=== PATIENT | male | born 1955 | race Hispanic/Latino ===

== ENCOUNTER 2018-05-18 07:07 | Outpatient (CLI) | payer MEDICARE | END 2018-05-18 07:08 | disposition home or self-care (01) | LOC: RAD 07:07 ==

== ENCOUNTER 2018-05-18 16:25 | Inpatient (IN) | payer MEDICARE ==
--- NOTE | 2018-05-18 16:56 | ED PDOC ---
Arrival/HPI - General Chief Complaint: GI Problem Time Seen by Provider: 05/18/18 16:28 Historian: Patient - History of Present Illness Narrative History of Present Illness (Text): 05/18/18 17:43 62-year-old male with a history of diabetes presents today sent in by his primary care physician after an abnormal CAT scan of the chest and abdomen. Patient states he has been having weight loss and has been having difficulty with swallowing solids for the past month or so. Patient states over the past 2 days he developed diarrhea. Patient states prior to this he was having difficulty having bowel movements. Patient denies chest pain or shortness of breath. He denies fevers or chills. pt denies abdominal pain. He denies any urinary symptoms. Patient states he has been smoking cigarettes since he was in high school. Patient sister states he has a history of prior heavy alcohol use in the past. Per patient's sister a few years ago he was told he had nodules in the lungs and did not follow-up. Past Medical History - Provider Review Nursing Documentation Reviewed: Yes - Travel History Have you recently traveled outside [place] w/in the past 3 mons?: No - Infectious Disease Hx of Infectious Diseases: None - Pulmonary Hx Bronchitis: Yes (last week) - Neurological Hx Neurological Disorder: Yes (neuropathy both legs pins/needles) - HEENT Hx HEENT Disorder: Yes (eyeglasses) - Endocrine/Metabolic Hx Diabetes Mellitus Type 2: Yes - Musculoskeletal/Rheumatological Hx Falls: No - Psychiatric Hx Substance Use: No - Surgical History Other/Comment: bilat rotated cuff left 10 yrs ago right 3 yrs ago, hernioraphy as a child - Anesthesia Hx Anesthesia: Yes Hx Anesthesia Reactions: No Hx Malignant Hyperthermia: No Family/Social History - Physician Review Nursing Documentation Reviewed: Yes Family/Social History: Unknown Family HX Smoking Status: Heavy Smoker > 10 Cigarettes Daily Hx Alcohol Use: No Hx Substance Use: No Allergies/Home Meds Allergies/Adverse Reactions: Allergies No Known Allergies Allergy (Verified 07/30/15 11:51) Home Medications: Home Meds Medication Instructions Recorded Confirmed Glipizide [Glucotrol] 10 mg PO BID 07/30/15 05/18/18 Insulin Detemir [Levemir] 40 unit SC HS 07/30/15 05/18/18 Atorvastatin [Lipitor] 40 mg PO HS 05/18/18 05/18/18 Lisinopril [Zestril] 10 mg PO DAILY 05/18/18 05/18/18 Pantoprazole Sodium [Protonix] 40 mg PO DAILY 05/18/18 05/18/18 Review of Systems - Review of Systems Constitutional: Weight Change. absent: Fatigue, Fevers Respiratory: Cough. absent: SOB Cardiovascular: absent: Chest Pain, Palpitations Gastrointestinal: Abdominal Pain, Diarrhea, Nausea, Vomiting Genitourinary Male: absent: Dysuria, Frequency Musculoskeletal: absent: Arthralgias, Back Pain Skin: absent: Rash, Pruritis Neurological: absent: Headache, Dizziness Psychiatric: absent: Anxiety, Depression Physical Exam Vital Signs Reviewed: Yes Vital Signs Temp Pulse Resp BP Pulse Ox 05/18/18 16:25 97.7 F 94 H 18 164/81 H 100 Temperature: Afebrile Blood Pressure: Hypertensive Pulse: Regular Respiratory Rate: Normal Appearance: Positive for: Well-Appearing, Non-Toxic, Comfortable Pain Distress: None Mental Status: Positive for: Alert and Oriented X 3 - Systems Exam Head: Present: Atraumatic Mouth: Present: Moist Mucous Membranes Neck: Present: Normal Range of Motion Respiratory/Chest: Present: Clear to Auscultation, Good Air Exchange. No: Respiratory Distress, Accessory Muscle Use Cardiovascular: Present: Regular Rate and Rhythm, Normal S1, S2. No: Murmurs Abdomen: Present: Normal Bowel Sounds. No: Tenderness, Distention, Peritoneal Signs, Rebound, Guarding Back: Present: Normal Inspection Upper Extremity: Present: Normal Inspection Lower Extremity: Present: Normal Inspection Neurological: Present: GCS=15, Speech Normal Skin: Present: Warm, Dry, Normal Color. No: Rashes Psychiatric: Present: Alert, Oriented x 3 Medical Decision Making ED Course and Treatment: 05/18/18 18:02 62yr old male with abnormal CT showing intussusception and metastatic liver lesions as well as adenopathy. Case was discussed with Dr. Araujo in depth. As patient has a appointment with him on 06/08/2018. he reviewed CAT scan and saw the patient at beside. He advised CT of abd/pelvis with PO contrast to further evaluate. 05/18/18 18:[address] Salazar in depth. advised adding tumor marker and continue with CT and contact him after repeat CT. cbc; WBC: 18.9 hGb; 10.9 plt; elevated cmp: K5.9 glucose; 380 cxr: FINDINGS: LUNGS: The lungs are well inflated and clear. There is asymmetric enlargement of the right hilum however stable since the prior examination. PLEURA: No pleural effusions or pneumothorax. CARDIOVASCULAR: The heart is normal in size. There are aortic atherosclerotic calcifications present. OSSEOUS STRUCTURES: Within normal limits for the patient's age. [place] screw identified in the left humeral head. VISUALIZED UPPER ABDOMEN: Normal. OTHER FINDINGS: None. IMPRESSION: No active pulmonary disease. Stable asymmetric enlargement of the right hilum. 05/18/18 18:34 pt was found to have a K of 5.9 not hemolyzed. Insulin 7mg IV given, albuterol given, amp of bicarb given. pt glucose is 380. EKG: NSR at 94 b/m no st elevations, no peaked T waves. CT abd/pelvis with PO contrast:COMMENTS: The liver is enlarged. Innumerable masses seen scattered throughout the liver consistent with metastatic disease. There is no intra or extrahepatic biliary ductal dilatation. The spleen is normal. The gallbladder is contracted demonstrates vicarious excretion of contrast. There is no evidence of adrenal mass. There are multiple calcifications present in the region of pancreatic head consistent with chronic pancreatitis. Perihepatic ascites is seen. There is extensive retroperitoneal and mesenteric lymphadenopathy noted. There is moderate sized hiatal hernia. There is diffuse nodular thickening noted at the distal esophagus and GE junction. Malignancy is not excluded. Consider follow-up with upper endoscopy. The kidneys are normal in size, shape and configuration. There is no evidence of renal or ureteral mass. No renal or ureteral calculi are identified. There is no hydroureter or hydronephrosis. Note is again made of enteroenteric intussusception in the right upper quadrant. No evidence for appendicitis. No evidence for small or large bowel obstruction. Large amount of fecal material is seen throughout the colon consistent with constipation. There is no evidence of intrinsic or extrinsic bladder mass. There are no pleural effusions. Note again is made of numerous bilateral lung nodules, most of which measuring up to 5 mm consistent with metastatic process. There is a larger nodule noted in the left lower lobe measuring approximately 10 mm in size. There is subpleural nodular density measuring 14 mm in the left lung base. The bony structures are free of lytic or blastic lesions. IMPRESSION: 1. The liver is enlarged with innumerable masses seen scattered throughout the liver consistent with metastatic disease. 2. Chronic pancreatitis. 3. Enteroenteric intussusception in the right upper quadrant. 4. Perihepatic ascites. 5. Extensive retroperitoneal and mesenteric lymphadenopathy noted. 6. Moderate sized hiatal hernia. 7. Diffuse nodular thickening noted at the distal esophagus and GE junction. Malignancy is not excluded. Consider follow-up with upper endoscopy. 8. Numerous bilateral lung nodules measuring consistent with metastatic process. CT results of Abdominal and pelvis with PO contrast discussed with dr. Salazar in depth. advised him of the Intussusception that is again shown on this repeat ct. He wants to have the patient admitted. He does not want to do any surgical intervention at this time. Make patient NPO. And he will re-evaluate tomorrow morning. pt reassessment; pt again denies any pain; abdomen remains soft non tender, non distended. ct results of intussusception on 2nd CT were also discussed in depth with surgical coder dr. Chong. case discussed with dr Aleman in depth; will admit to remote tele for intussusception, hyperkalemia hyperglycemia All results were discussed in depth with the patient and family including metastatic cancer spread to the liver and intussusception. impression: intussusception, metastic liver lesions, hyperkalemia, hyperglycemia admit remote tele - RAD Interpretation Radiology Orders: 05/18/18 16:49 CHEST PORTABLE [RAD] Stat Disposition/Present on Arrival - Present on Arrival Any Indicators Present on Arrival: Yes History of DVT/PE: No History of Uncontrolled Diabetes: Yes Urinary Catheter: No History of Decub. Ulcer: No History Surgical Site Infection Following: None - Disposition Have Diagnosis and Disposition been Completed?: Yes Diagnosis: Metastases to the liver, Nausea vomiting and diarrhea, Abnormal CT of the abdomen, Lung nodules, Hyperglycemia, Hyperkalemia, Leukocytosis Disposition: HOSPITALIZED Disposition Time: 18:10 Patient Plan: Admission, Telemetry (remote) Patient Problems: Current Active Problems Problem Status Onset Abnormal CT of the abdomen Acute Hyperglycemia Acute Hyperkalemia Acute Leukocytosis Acute Lung nodules Acute Metastases to the liver Acute Nausea vomiting and diarrhea Acute Condition: FAIR Forms: [employer] ([place])
[2018-05-18] MEDS ORDERED: Iohexol 240 (50 ml) ONE (18:04)
[2018-05-18 18:13] LABS: BASO # 0.02 K/mm3 (0.0-2.0); BASO % 0.1 % (0.0-3.0); EOS % 0.1 % (1.5-5.0); GRAN # 15.75 (1.4-6.5); GRAN % 83.6 % (50.0-68.0); HEMOGLOBIN 10.9 g/dL (14.0-18.0); LYMPH # 1.1 (1.2-3.4); LYMPH % 5.9 % (22.0-35.0); MEAN CELL VOLUME 80.2 fl (80.0-105.0); MEAN CORPUSCULAR HEMOGLOBIN 26.3 pg (25.0-35.0); MEAN CORPUSCULAR HGB CONC 32.8 g/dl (31.0-37.0); MEAN PLATELET VOLUME 10.3 fl (7.0-11.0); MONO % 10.3 % (1.0-6.0); RBC 4.14 10^6/uL (3.5-6.1); WHITE BLOOD COUNT 18.9 10^3/uL (4.5-11.0)
[2018-05-18 18:19] LABS: INR 1.03; PROTHROMBIN TIME 11.7 SECONDS (9.4-12.5)
[2018-05-18 18:20] LABS: ALB/GLOB RATIO 0.8 (1.1-1.8); ALBUMIN 3.4 g/dL (3.0-4.8); ALT/SGPT 54 U/L (7-56); AST/SGOT 65 U/L (17-59); BLOOD UREA NITROGEN 33 mg/dL (7-21); CALCIUM 9.3 mg/dL (8.4-10.5); GFR NON-AFRICAN AMERICAN 51
[2018-05-18] MEDS ORDERED: Insulin Regular 1 UNITS/0.01 ML ML IV STA (18:31)
[2018-05-18] MEDS ORDERED: Sodium Chloride 0.9% 1,000 ML IV STA (18:31)
--- NOTE | 2018-05-18 18:31 | CP.PCM.CON ---
<Gil Chong - Last Filed: 05/18/18 22:22> History of Present Illness - History of Present Illness History of Present Illness: General Surgery Consult for Dr. Marie Fernandes Jenniffer is 62M with a PMH of DM, HTN, HLD & Anxiety who was sent by his primary care provider for chest/abdominal CT scan due to unexplained weight loss weight loss. The CT scan was significant for diffuse metastatic disease and an incidental finding suggestive of Intussusception in RUQ. Pt complains of constipation for 1 week which resolved yesterday upon taking Miralax with watery bowel movements. The patient complains of detention dysphagia to solids without odynophagia. Denies any bilious emesis, abdominal pain, bloody bowel movements. Additionally Pt denies fevers, chills, chest pain, dyspnea, hemoptysis, he matochezia, hematouria. PMHx: DM, HTN, HLD & Anxiety PSHx: Open right inguinal hernia repair. Rotator cuff repair. All: Denies Social: 80-pack year smoker. Denies alcohol & drugs. Family Hx: Father of heart attack. Mother of Lung CA / Breast CA Review of Systems - Constitutional Constitutional: Anorexia, Weight Loss. absent: Fever, Headache - EENT Eyes: absent: Blurred Vision, Change in Vision Ears: absent: Decreased Hearing, Ear Discharge, Tinnitus Nose/Mouth/Throat: absent: Nasal Discharge, Nose Pain, Odynophagia, Sore Throat - Cardiovascular Cardiovascular: absent: Chest Pain, Dyspnea, Dyspnea on Exertion, Palpitations, Syncope - Respiratory Respiratory: absent: Dyspnea, Hemoptysis, Dyspnea on Exertion - Gastrointestinal Gastrointestinal: Diarrhea, Dysphagia. absent: Abdominal Pain, Bloating, Naus ea, Odynophagia, Vomiting - Genitourinary Genitourinary: absent: Change in Urinary Stream, Difficulty Urinating, Dysuria - Musculoskeletal Musculoskeletal: absent: Arthralgias Past Patient History - Infectious Disease Hx of Infectious Diseases: None - Past Social History Smoking Status: Heavy Smoker > 10 Cigarettes Daily - PULMONARY Hx Bronchitis: Yes (last week) - NEUROLOGICAL Hx Neurological Disorder: Yes (neuropathy both legs pins/needles) - HEENT Hx HEENT Problems: Yes (eyeglasses) - ENDOCRINE/METABOLIC Hx Diabetes Mellitus Type 2: Yes - MUSCULOSKELETAL/RHEUMATOLOGICAL Hx Falls: No - PSYCHIATRIC Hx Substance Use: No - SURGICAL HISTORY Other/Comment: bilat rotated cuff left 10 yrs ago right 3 yrs ago, hernioraphy as a child - ANESTHESIA Hx Anesthesia: Yes Hx Anesthesia Reactions: No Hx Malignant Hyperthermia: No Meds Allergies/Adverse Reactions: Allergies Allergy/AdvReac Type Severity Reaction Status Date / Time No Known Allergies Allergy Verified 07/30/15 11:51 Physical Exam - Constitutional Appears: Non-toxic, No Acute Distress, Cachectic - Head Exam Head Exam: ATRAUMATIC, NORMOCEPHALIC - Eye Exam Eye Exam: EOMI, Normal appearance - ENT Exam ENT Exam: Mucous Membranes Moist - Respiratory Exam Respiratory Exam: NORMAL BREATHING PATTERN. absent: Respiratory Distress - Cardiovascular Exam Cardiovascular Exam: +S1, +S2 - GI/Abdominal Exam GI & Abdominal Exam: Soft. absent: Distended, Firm, Guarding, Hernia, Mass, Rebound, Rigid, Tenderness - Neurological Exam Neurological exam: Alert, Oriented x3 - Psychiatric Exam Psychiatric exam: Normal Affect, Normal Mood - Skin Skin Exam: Dry, Intact Results - Vital Signs Recent Vital Signs: Last Vital Signs Temp 97.7 F 05/18/18 16:25 Pulse 94 H 05/18/18 16:25 Resp 18 05/18/18 16:25 BP 164/81 H 05/18/18 16:25 Pulse Ox 100 05/18/18 16:25 - Labs Result Diagrams: 05/18/18 17:58 05/18/18 17:58 Labs: Laboratory Results - last 24 hr 05/18/18 17:45 BBK History Checked No verified bt - Imaging and Cardiology CT scan - abdomen Status: Image reviewed by me, Report reviewed by me CT scan - chest Status: Image reviewed by me Assessment & Plan - Assessment and Plan (Free Text) Assessment: 62M with diffuse metastatic disease admitted for incidental finding of intussusception of CT Scan Patient currently with benign abdomen, no emesis Stool in colon Tolerated PO contrast Will continue to monitor F/U Tumor markers Continue liquid diet at patient has dysphgia to solids Serial abdominal exams, if patient develops signs of acute obstruction or acute abdomen will proceed to OR D/W Dr. Marie Chong PGY3 <Danny Salazar - Last Filed: 05/19/18 08:15> Meds - Medications Medications: Current Medications Atorvastatin Calcium (Lipitor) 40 mg PO HS EMMA Heparin Sodium (Porcine) (Heparin) 5,000 units SC Q8H EMMA; Protocol Last Admin: 05/19/18 03:33 Dose: 5,000 units Sodium Chloride (Sodium Chloride 0.9%) 1,000 mls @ 100 mls/hr IV .Q10H EMMA Last Admin: 05/19/18 03:33 Dose: 100 mls/hr Insulin Human Regular (Humulin R Med) 0 units SC ACHS EMMA; Protocol Last Admin: 05/19/18 08:03 Dose: Not Given Pantoprazole Sodium (Protonix Inj) 40 mg IVP DAILY [facility] Results - Vital Signs Recent Vital Signs: Last Vital Signs Temp 97.6 F 05/19/18 01:40 Pulse 87 05/19/18 02:00 Resp 20 05/19/18 01:44 BP 164/75 H 05/19/18 01:40 Pulse Ox 97 05/19/18 01:40 - Labs Result Diagrams: 05/19/18 04:25 05/19/18 04:25 Labs: Laboratory Results - last 24 hr 05/18/18 05/18/18 05/18/18 17:45 17:58 17:58 WBC RBC Hgb Hct MCV MCH MCHC RDW Plt Count MPV Gran % Lymph % (Auto) Placer % (Auto) Eos % (Auto) Baso % (Auto) Gran # Lymph # (Auto) Placer # (Auto) Eos # (Auto) Baso # (Auto) PT 11.7 INR 1.03 APTT 33.0 pO2 VBG pH VBG pCO2 VBG HCO3 VBG Total CO2 VBG O2 Sat (Calc) VBG Base Excess VBG Potassium Glucose Lactate FiO2 Sodium 133 Potassium 5.9 H* D Chloride 100 Carbon Dioxide 27 Anion Gap 13 BUN 33 H Creatinine 1.4 Est GFR ( Amer) > 60 Est GFR (Non-Af Amer) 51 POC Glucose (mg/dL) Random Glucose 380 H* D Calcium 9.3 Phosphorus Magnesium Iron TIBC % Saturation Total Bilirubin 0.5 AST 65 H ALT 54 Alkaline Phosphatase 1377 H Lactate Dehydrogenase Total Creatine Kinase Troponin I Total Protein 7.8 Albumin 3.4 Globulin 4.4 Albumin/Globulin Ratio 0.8 L Lipase 73 Carcinoembryonic Ag Venous Blood Potassium Urine Color Urine Appearance Urine pH Ur Specific [place] Urine Protein Urine Glucose (UA) Urine Ketones Urine Blood Urine Nitrate Urine Bilirubin Urine Urobilinogen Ur Leukocyte Esterase Urine RBC Urine WBC Ur Epithelial Cells Urine Bacteria Blood Type O POSITIVE Blood Type Confirm Antibody Screen Negative BBK History Checked No verified bt 05/18/18 05/18/18 05/18/18 17:58 17:58 18:00 WBC 18.9 H RBC 4.14 Hgb 10.9 L Hct 33.2 L MCV 80.2 MCH 26.3 MCHC 32.8 RDW 14.0 Plt Count 716 H* D MPV 10.3 Gran % 83.6 H Lymph % (Auto) 5.9 L [place]acer % (Auto) 10.3 H Eos % (Auto) 0.1 L Baso % (Auto) 0.1 Gran # 15.75 H Lymph # (Auto) 1.1 L Placer # (Auto) 2.0 H Eos # (Auto) 0.0 Baso # (Auto) 0.02 PT INR APTT pO2 VBG pH VBG pCO2 VBG HCO3 VBG Total CO2 VBG O2 Sat (Calc) VBG Base Excess VBG Potassium Glucose Lactate FiO2 Sodium Potassium Chloride Carbon Dioxide Anion Gap BUN Creatinine Est GFR ( Amer) Est GFR (Non-Af Amer) POC Glucose (mg/dL) Random Glucose Calcium Phosphorus Magnesium Iron TIBC % Saturation Total Bilirubin AST ALT Alkaline Phosphatase Lactate Dehydrogenase 1657 H Total Creatine Kinase 114 Troponin I < 0.01 Total Protein Albumin Globulin Albumin/Globulin Ratio Lipase Carcinoembryonic Ag 72030.0 H Venous Blood Potassium Urine Color Urine Appearance Urine pH Ur Specific [place] Urine Protein Urine Glucose (UA) Urine Ketones Urine Blood Urine Nitrate Urine Bilirubin Urine Urobilinogen Ur Leukocyte Esterase Urine RBC Urine WBC Ur Epithelial Cells Urine Bacteria Blood Type Blood Type Confirm Antibody Screen BBK History Checked 05/18/18 05/18/18 05/18/18 18:24 18:37 19:00 WBC RBC Hgb Hct MCV MCH MCHC RDW Plt Count MPV Gran % Lymph % (Auto) Placer % (Auto) Eos % (Auto) Baso % (Auto) Gran # Lymph # (Auto) Placer # (Auto) Eos # (Auto) Baso # (Auto) PT INR APTT pO2 VBG pH VBG pCO2 VBG HCO3 VBG Total CO2 VBG O2 Sat (Calc) VBG Base Excess VBG Potassium Glucose Lactate FiO2 Sodium Potassium Chloride Carbon Dioxide Anion Gap BUN Creatinine Est GFR ( Amer) Est GFR (Non-Af Amer) POC Glucose (mg/dL) 366 H Random Glucose Calcium Phosphorus Magnesium Iron TIBC % Saturation Total Bilirubin AST ALT Alkaline Phosphatase Lactate Dehydrogenase Total Creatine Kinase Troponin I Total Protein Albumin Globulin Albumin/Globulin Ratio Lipase Carcinoembryonic Ag Venous Blood Potassium Urine Color Yellow Urine Appearance Clear Urine pH 6.0 Ur Specific [place] 1.025 Urine Protein >=300 H Urine Glucose (UA) 250 H Urine Ketones Negative Urine Blood Small H Urine Nitrate Negative Urine Bilirubin Negative Urine Urobilinogen 1.0 H Ur Leukocyte Esterase Negative Urine RBC 5 - 10 H Urine WBC 2 - 5 Ur Epithelial Cells 0 - 2 Urine Bacteria Mod Blood Type Blood Type Confirm O POSITIVE Antibody Screen BBK History Checked 05/18/18 05/18/18 05/18/18 19:21 20:25 21:50 WBC RBC Hgb Hct MCV MCH MCHC RDW Plt Count MPV Gran % Lymph % (Auto) Placer % (Auto) Eos % (Auto) Baso % (Auto) Gran # Lymph # (Auto) Placer # (Auto) Eos # (Auto) Baso # (Auto) PT INR APTT pO2 VBG pH VBG pCO2 VBG HCO3 VBG Total CO2 VBG O2 Sat (Calc) VBG Base Excess VBG Potassium Glucose Lactate FiO2 Sodium Potassium Chloride Carbon Dioxide Anion Gap BUN Creatinine Est GFR ( Amer) Est GFR (Non-Af Amer) POC Glucose (mg/dL) 309 H 292 H 256 H Random Glucose Calcium Phosphorus Magnesium Iron TIBC % Saturation Total Bilirubin AST ALT Alkaline Phosphatase Lactate Dehydrogenase Total Creatine Kinase Troponin I Total Protein Albumin Globulin Albumin/Globulin Ratio Lipase Carcinoembryonic Ag Venous Blood Potassium Urine Color Urine Appearance Urine pH Ur Specific [place] Urine Protein Urine Glucose (UA) Urine Ketones Urine Blood Urine Nitrate Urine Bilirubin Urine Urobilinogen Ur Leukocyte Esterase Urine RBC Urine WBC Ur Epithelial Cells Urine Bacteria Blood Type Blood Type Confirm Antibody Screen BBK History Checked 05/18/18 05/19/18 05/19/18 22:13 03:12 04:25 WBC RBC Hgb Hct MCV MCH MCHC RDW Plt Count MPV Gran % Lymph % (Auto) Placer % (Auto) Eos % (Auto) Baso % (Auto) Gran # Lymph # (Auto) Placer # (Auto) Eos # (Auto) Baso # (Auto) PT INR APTT pO2 115 H VBG pH 7.38 VBG pCO2 39.0 L VBG HCO3 23.1 VBG Total CO2 24.3 VBG O2 Sat (Calc) 98.6 H VBG Base Excess -1.8 L VBG Potassium 4.0 Glucose 266 H Lactate 1.1 FiO2 21.0 Sodium 131.0 L Potassium Chloride 101.0 Carbon Dioxide Anion Gap BUN Creatinine Est GFR ( Amer) Est GFR (Non-Af Amer) POC Glucose (mg/dL) 255 H Random Glucose Calcium Phosphorus Magnesium Iron 12 L TIBC 198 L % Saturation 6 L Total Bilirubin AST ALT Alkaline Phosphatase Lactate Dehydrogenase Total Creatine Kinase Troponin I Total Protein Albumin Globulin Albumin/Globulin Ratio Lipase Carcinoembryonic Ag Venous Blood Potassium 4.0 Urine Color Urine Appearance Urine pH Ur Specific [place] Urine Protein Urine Glucose (UA) Urine Ketones Urine Blood Urine Nitrate Urine Bilirubin Urine Urobilinogen Ur Leukocyte Esterase Urine RBC Urine WBC Ur Epithelial Cells Urine Bacteria Blood Type Blood Type Confirm Antibody Screen BBK History Checked 05/19/18 05/19/18 05/19/18 04:25 04:25 07:46 WBC 15.8 H RBC 3.56 Hgb 9.3 L Hct 28.1 L MCV 78.9 L MCH 26.1 MCHC 33.1 RDW 13.8 Plt Count 489 H MPV 9.9 Gran % 82.7 H Lymph % (Auto) 6.1 L Placer % (Auto) 11.0 H Eos % (Auto) 0.1 L Baso % (Auto) 0.1 Gran # 13.11 H Lymph # (Auto) 1.0 L Placer # (Auto) 1.7 H Eos # (Auto) 0.0 Baso # (Auto) 0.02 PT INR APTT pO2 VBG pH VBG pCO2 VBG HCO3 VBG Total CO2 VBG O2 Sat (Calc) VBG Base Excess VBG Potassium Glucose Lactate FiO2 Sodium 133 Potassium 4.4 Chloride 101 Carbon Dioxide 24 Anion Gap 12 BUN 29 H Creatinine 1.4 Est GFR ( Amer) > 60 Est GFR (Non-Af Amer) 51 POC Glucose (mg/dL) 97 Random Glucose 243 H Calcium 8.5 Phosphorus 3.8 Magnesium 1.9 Iron TIBC % Saturation Total Bilirubin 0.4 AST 46 ALT 44 Alkaline Phosphatase 986 H D Lactate Dehydrogenase Total Creatine Kinase Troponin I Total Protein 6.4 Albumin 2.8 L Globulin 3.5 Albumin/Globulin Ratio 0.8 L Lipase Carcinoembryonic Ag Venous Blood Potassium Urine Color Urine Appearance Urine pH Ur Specific [place] Urine Protein Urine Glucose (UA) Urine Ketones Urine Blood Urine Nitrate Urine Bilirubin Urine Urobilinogen Ur Leukocyte Esterase Urine RBC Urine WBC Ur Epithelial Cells Urine Bacteria Blood Type Blood Type Confirm Antibody Screen BBK History Checked Assessment & Plan - Assessment and Plan (Free Text) Plan: 62 yo w/ weight loss, inability to tolerate adequate po nutrition. w/u c/w metsastatic disease of unclear primary (retroperitoneal and hilar LNpathy, multiple liver and lung masses), and ?intussusception without evidence of bowel obstruction. Plan for CT or sono guided needle bx of liver lesions and CEA/CA19- 9. Med/Onc consult. No acute surgical issues at this point.
[2018-05-18] MEDS ORDERED: Albuterol 0.083% Inhal Sol (2.5 mg/3 mL) UD INH STA (18:33)
--- NOTE | 2018-05-18 18:39 | RAD ---
Date of service: 05/18/2018 HISTORY: cough/ n/v/d COMPARISON: 07/30/2015 FINDINGS: LUNGS: The lungs are well inflated and clear. There is asymmetric enlargement of the right hilum however stable since the prior examination. PLEURA: No pleural effusions or pneumothorax. CARDIOVASCULAR: The heart is normal in size. There are aortic atherosclerotic calcifications present. OSSEOUS STRUCTURES: Within normal limits for the patient's age. [place] screw identified in the left humeral head. VISUALIZED UPPER ABDOMEN: Normal. OTHER FINDINGS: None. IMPRESSION: No active pulmonary disease. Stable asymmetric enlargement of the right hilum.
[2018-05-18] MEDS ORDERED: Sodium Bicarbonate (8.4%) 50 Meq Syringe IVP ONE (18:40)
[2018-05-18 18:42] LABS: LIPASE 73 U/L (23-300)
--- NOTE | 2018-05-18 19:06 | CARD ---
APPROVED REPORT Date of service: 05/18/2018 EKG Measurement Heart [id number] <Conclusion> Normal sinus rhythm Normal ECG
[2018-05-18 19:16] LABS: URINE BILIRUBIN NEGATIVE (NEGATIVE); URINE BLOOD SMALL (NEGATIVE); URINE GLUCOSE (UA) 250 mg/dL (NEGATIVE); URINE LEUKOCYTE ESTERASE NEGATIVE Leu/uL (NEGATIVE); URINE PROTEIN >=300 mg/dL (<30 mg/dL)
[2018-05-18 19:17] LABS: URINE APPEARANCE CLEAR (CLEAR); URINE COLOR YELLOW (YELLOW)
[2018-05-18 20:29] LABS: URINE BACTERIA MOD /hpf; URINE EPITHELIAL CELLS 0 - 2 /hpf (0-5)
[2018-05-18] MEDS ORDERED: Piperacillin/Tazobact 3.375 gm 100 ML IVPB STA (21:18)
[2018-05-18 22:21] LABS: VENOUS BLOOD GAS BASE EXCESS -1.8 mmol/L (0.0-2.0); VENOUS BLOOD GAS PO2 115 mm/Hg (30-55); VENOUS BLOOD PH 7.38 (7.32-7.43)
--- NOTE | 2018-05-19 00:34 | CP.PCM.HP ---
<Claude Wheeler - Last Filed: 05/19/18 02:51> History of Present Illness - History of Present Illness History of Present Illness: Claude Wheeler DO PGY1 - Internal Medicine [employer] H&P CC: Dysphagia; Intusseption 62M w/ a PMH of DM, HLD, GERD, HTN, Chronic Pancreatitis, who presented to [facility] on 05/19 after seeing his primary who urged him to have CTAP performed. Patient reported he has been having constipation and weightloss over the past month; which has now turned into diarrhea (non bloody). Patient reported that he has lost close to 20lb over the past month and has been having chills/ night sweats during this time as well. He reports new onset dysphagia over the past 2- 3 weeks as well. Patient reports he has no issue initiating swallowing; however does report something stuck in his throat after he begins to swallow; patient reported symptoms initially started off as worsened w/ solids only however he now reports that he experiences some symptoms w/ liquids. Of note patient drank entire bowel contrast prep for CTAP today w/o any issue. Of note he reports his last colonoscopy was 8 years ago. Upon evaluation, he denies any N/V, denies abdominal pain, numbness/tingling, focal weakness, chest pain, palpitations, sob, cough. Remainder 12 system ROS is otherwise negative PMD: [place] [facility]: [facility] PMH: As above PSH: Hernia repair Social: Remote daily EtOH use, 50 pack year active smoker, Remote Hx Drug abuse Home Rx: Glipizide 10 BID Before Meals, Atorvastatin 40 QD, Insulin, Protonix 40 , Lisinopril 10 QD Fam hx: Mom - Breast CA, Lung CA, Father -CA Present on Admission - Present on Admission Any Indicators Present on Admission: No Review of Systems - Review of Systems All systems: reviewed and no additional remarkable complaints except Review of Systems: as per HPI Past Patient History - Infectious Disease Hx of Infectious Diseases: None - Past Social History Smoking Status: Heavy Smoker > 10 Cigarettes Daily - PULMONARY Hx Bronchitis: Yes (last week) - NEUROLOGICAL Hx Neurological Disorder: Yes (neuropathy both legs pins/needles) - HEENT Hx HEENT Problems: Yes (eyeglasses) - ENDOCRINE/METABOLIC Hx Diabetes Mellitus Type 2: Yes - MUSCULOSKELETAL/RHEUMATOLOGICAL Hx Falls: No - PSYCHIATRIC Hx Substance Use: No - SURGICAL HISTORY Other/Comment: bilat rotated cuff left 10 yrs ago right 3 yrs ago, hernioraphy as a child - ANESTHESIA Hx Anesthesia: Yes Hx Anesthesia Reactions: No Hx Malignant Hyperthermia: No Meds Allergies/Adverse Reactions: Allergies Allergy/AdvReac Type Severity Reaction Status Date / Time No Known Allergies Allergy Verified 07/30/15 11:51 Physical Exam - Constitutional Appears: Well, Non-toxic, No Acute Distress, Chronically Ill - Head Exam Head Exam: ATRAUMATIC, NORMOCEPHALIC - Eye Exam Eye Exam: EOMI, Normal appearance, PERRL. absent: Scleral icterus - ENT Exam ENT Exam: Mucous Membranes Moist Additional comments: poor dentition - Respiratory Exam Respiratory Exam: Clear to Auscultation Bilateral, NORMAL BREATHING PATTERN. absent: Rales, Rhonchi, Wheezes - Cardiovascular Exam Cardiovascular Exam: RRR, +S1, +S2. absent: Systolic Murmur - GI/Abdominal Exam GI & Abdominal Exam: Soft. absent: Tenderness Additional comments: Mild hepatomegaly; Liver edge palpable - Extremities Exam Extremities exam: Positive for: normal inspection, pedal pulses present - Neurological Exam Neurological exam: Alert, CN II-XII Intact, Oriented x3 - Skin Skin Exam: Dry, Intact, Warm Results - Vital Signs Recent Vital Signs: Last Vital Signs Temp 97.7 F 05/18/18 16:25 Pulse 90 05/18/18 21:51 Resp 18 05/18/18 21:51 BP 148/70 05/18/18 21:51 Pulse Ox 97 05/18/18 21:51 - Labs Result Diagrams: 05/18/18 17:58 05/18/18 17:58 Labs: Laboratory Results - last 24 hr 05/18/18 05/18/18 05/18/18 17:45 17:58 17:58 WBC RBC Hgb Hct MCV MCH MCHC RDW Plt Count MPV Gran % Lymph % (Auto) [place] % (Auto) Eos % (Auto) Baso % (Auto) Gran # Lymph # (Auto) [place] # (Auto) Eos # (Auto) Baso # (Auto) PT 11.7 INR 1.03 APTT 33.0 pO2 VBG pH VBG pCO2 VBG HCO3 VBG Total CO2 VBG O2 Sat (Calc) VBG Base Excess VBG Potassium Glucose Lactate FiO2 Sodium 133 Potassium 5.9 H* D Chloride 100 Carbon Dioxide 27 Anion Gap 13 BUN 33 H Creatinine 1.4 Est GFR ( Amer) > 60 Est GFR (Non-Af Amer) 51 POC Glucose (mg/dL) Random Glucose 380 H* D Calcium 9.3 Total Bilirubin 0.5 AST 65 H ALT 54 Alkaline Phosphatase 1377 H Total Protein 7.8 Albumin 3.4 Globulin 4.4 Albumin/Globulin Ratio 0.8 L Lipase 73 Carcinoembryonic Ag Venous Blood Potassium Urine Color Urine Appearance Urine pH Ur Specific [place] Urine Protein Urine Glucose (UA) Urine Ketones Urine Blood Urine Nitrate Urine Bilirubin Urine Urobilinogen Ur Leukocyte Esterase Urine RBC Urine WBC Ur Epithelial Cells Urine Bacteria Blood Type O POSITIVE Blood Type Confirm Antibody Screen Negative BBK History Checked No verified bt 05/18/18 05/18/18 05/18/18 17:58 18:00 18:24 WBC 18.9 H RBC 4.14 Hgb 10.9 L Hct 33.2 L MCV 80.2 MCH 26.3 MCHC 32.8 RDW 14.0 Plt Count 716 H* D MPV 10.3 Gran % 83.6 H Lymph % (Auto) 5.9 L [place] % (Auto) 10.3 H Eos % (Auto) 0.1 L Baso % (Auto) 0.1 Gran # 15.75 H Lymph # (Auto) 1.1 L [place] # (Auto) 2.0 H Eos # (Auto) 0.0 Baso # (Auto) 0.02 PT INR APTT pO2 VBG pH VBG pCO2 VBG HCO3 VBG Total CO2 VBG O2 Sat (Calc) VBG Base Excess VBG Potassium Glucose Lactate FiO2 Sodium Potassium Chloride Carbon Dioxide Anion Gap BUN Creatinine Est GFR ( Amer) Est GFR (Non-Af Amer) POC Glucose (mg/dL) Random Glucose Calcium Total Bilirubin AST ALT Alkaline Phosphatase Total Protein Albumin Globulin Albumin/Globulin Ratio Lipase Carcinoembryonic Ag 42714.0 H Venous Blood Potassium Urine Color Urine Appearance Urine pH Ur Specific [place] Urine Protein Urine Glucose (UA) Urine Ketones Urine Blood Urine Nitrate Urine Bilirubin Urine Urobilinogen Ur Leukocyte Esterase Urine RBC Urine WBC Ur Epithelial Cells Urine Bacteria Blood Type Blood Type Confirm O POSITIVE Antibody Screen BBK History Checked 05/18/18 05/18/18 05/18/18 18:37 19:00 19:21 WBC RBC Hgb Hct MCV MCH MCHC RDW Plt Count MPV Gran % Lymph % (Auto) [place] % (Auto) Eos % (Auto) Baso % (Auto) Gran # Lymph # (Auto) [place] # (Auto) Eos # (Auto) Baso # (Auto) PT INR APTT pO2 VBG pH VBG pCO2 VBG HCO3 VBG Total CO2 VBG O2 Sat (Calc) VBG Base Excess VBG Potassium Glucose Lactate FiO2 Sodium Potassium Chloride Carbon Dioxide Anion Gap BUN Creatinine Est GFR ( Amer) Est GFR (Non-Af Amer) POC Glucose (mg/dL) 366 H 309 H Random Glucose Calcium Total Bilirubin AST ALT Alkaline Phosphatase Total Protein Albumin Globulin Albumin/Globulin Ratio Lipase Carcinoembryonic Ag Venous Blood Potassium Urine Color Yellow Urine Appearance Clear Urine pH 6.0 Ur Specific [place] 1.025 Urine Protein >=300 H Urine Glucose (UA) 250 H Urine Ketones Negative Urine Blood Small H Urine Nitrate Negative Urine Bilirubin Negative Urine Urobilinogen 1.0 H Ur Leukocyte Esterase Negative Urine RBC 5 - 10 H Urine WBC 2 - 5 Ur Epithelial Cells 0 - 2 Urine Bacteria Mod Blood Type Blood Type Confirm Antibody Screen BBK History Checked 05/18/18 05/18/18 05/18/18 20:25 21:50 22:13 WBC RBC Hgb Hct MCV MCH MCHC RDW Plt Count MPV Gran % Lymph % (Auto) [place] % (Auto) Eos % (Auto) Baso % (Auto) Gran # Lymph # (Auto) [place] # (Auto) Eos # (Auto) Baso # (Auto) PT INR APTT pO2 115 H VBG pH 7.38 VBG pCO2 39.0 L VBG HCO3 23.1 VBG Total CO2 24.3 VBG O2 Sat (Calc) 98.6 H VBG Base Excess -1.8 L VBG Potassium 4.0 Glucose 266 H Lactate 1.1 FiO2 21.0 Sodium 131.0 L Potassium Chloride 101.0 Carbon Dioxide Anion Gap BUN Creatinine Est GFR ( Amer) Est GFR (Non-Af Amer) POC Glucose (mg/dL) 292 H 256 H Random Glucose Calcium Total Bilirubin AST ALT Alkaline Phosphatase Total Protein Albumin Globulin Albumin/Globulin Ratio Lipase Carcinoembryonic Ag Venous Blood Potassium 4.0 Urine Color Urine Appearance Urine pH Ur Specific [place] Urine Protein Urine Glucose (UA) Urine Ketones Urine Blood Urine Nitrate Urine Bilirubin Urine Urobilinogen Ur Leukocyte Esterase Urine RBC Urine WBC Ur Epithelial Cells Urine Bacteria Blood Type Blood Type Confirm Antibody Screen BBK History Checked Assessment & Plan - Assessment and Plan (Free Text) Assessment: 62M w/ a PMH of DM, HLD, GERD, HTN, Chronic Pancreatitis, who presented to [facility] on 05/19; Patient complained of dysphagia and B-type symptoms on evaluation; found to have significant heterogenicity on CTAP of liver highly suspicious for metastatic disease, and Intussusception Plan: Intussusception Noted on CTAP w/ PO contrast Tolerating PO Contrast/ liquids well; Abdomen Soft Nontender; Non acute; C/w liquid diet as per surgicla team Can proceed to OR if patient becomes acute; Will prep pre-op labs - PT/PTT/INR, CXR, EKG, Cross and Screen Surgery following, appreciate reccs GI Consulted, appreciate reccs HyperKalemia Asymptomatic, no chest pain, no peak T wave on admission EKG Given Bicarb and Insulin in ED Will give kayexalate once Follow up AM labs Metastatic Disease of Liver - Primary source unknown Patient has significant smoking history; continues to smoke actively; Reports approx 2 years ago hx of lung nodules w/o any follow up Patient presenting w/ BType symptoms, Chills, Night sweats, 20lb weight loss/ 1 mo, Primary source lung vs SCC of esophagus CEA elevated, CA 125, CA 19-9 pending Will give nicotine patch for now Liquid diet until dysphagia improves Heme/Onc consulted, appreciate reccs; Hx DM Low carb liquid diet Levemir 40 HS in EMR; patient did not report; will hold levemir at this time 10U levemir HS given - POC 250 on floors C/w ISS MED and Fingersticks ACHS [place] BUN/Cr : 33/1.4 Baseline 0.7-1.0 Most likely dehydration / pre-renal in setting of poor PO intake Will hydrate 100cc/hr Reevaluate in AM Anemia Normocytic; Most likely Anemia of chronic disease 2/2 suspected malignancy Fe/TIBC/B12/Folate/Ferritin pending Thrombocytosis Most likely reactive vs Dehydration PPX: Protonix Heparin 5K Q8 Patient was seen examined and discussed w/ attending physician Dr. Haris WHEELER DO PGY1 INTERNAL MEDICINE [employer]AGE [employer] - Date & Time Date: 05/19/18 Time: 04:21 <Shira Aleman - Last Filed: 05/19/18 05:58> Results - Vital Signs Recent Vital Signs: Last Vital Signs Temp 97.6 F 05/19/18 01:40 Pulse 87 05/19/18 02:00 Resp 20 05/19/18 01:44 BP 164/75 H 05/19/18 01:40 Pulse Ox 97 05/19/18 01:40 - Labs Result Diagrams: 05/19/18 04:25 05/19/18 04:25 Labs: Laboratory Results - last 24 hr 05/18/18 05/18/18 05/18/18 17:45 17:58 17:58 WBC RBC Hgb Hct MCV MCH MCHC RDW Plt Count MPV Gran % Lymph % (Auto) [place] % (Auto) Eos % (Auto) Baso % (Auto) Gran # Lymph # (Auto) [place] # (Auto) Eos # (Auto) Baso # (Auto) PT 11.7 INR 1.03 APTT 33.0 pO2 VBG pH VBG pCO2 VBG HCO3 VBG Total CO2 VBG O2 Sat (Calc) VBG Base Excess VBG Potassium Glucose Lactate FiO2 Sodium 133 Potassium 5.9 H* D Chloride 100 Carbon Dioxide 27 Anion Gap 13 BUN 33 H Creatinine 1.4 Est GFR ( Amer) > 60 Est GFR (Non-Af Amer) 51 POC Glucose (mg/dL) Random Glucose 380 H* D Calcium 9.3 Phosphorus Magnesium Total Bilirubin 0.5 AST 65 H ALT 54 Alkaline Phosphatase 1377 H Lactate Dehydrogenase Total Creatine Kinase Troponin I Total Protein 7.8 Albumin 3.4 Globulin 4.4 Albumin/Globulin Ratio 0.8 L Lipase 73 Carcinoembryonic Ag Venous Blood Potassium Urine Color Urine Appearance Urine pH Ur Specific [place] Urine Protein Urine Glucose (UA) Urine Ketones Urine Blood Urine Nitrate Urine Bilirubin Urine Urobilinogen Ur Leukocyte Esterase Urine RBC Urine WBC Ur Epithelial Cells Urine Bacteria Blood Type O POSITIVE Blood Type Confirm Antibody Screen Negative BBK History Checked No verified bt 05/18/18 05/18/18 05/18/18 17:58 17:58 18:00 WBC 18.9 H RBC 4.14 Hgb 10.9 L Hct 33.2 L MCV 80.2 MCH 26.3 MCHC 32.8 RDW 14.0 Plt Count 716 H* D MPV 10.3 Gran % 83.6 H Lymph % (Auto) 5.9 L [place] % (Auto) 10.3 H Eos % (Auto) 0.1 L Baso % (Auto) 0.1 Gran # 15.75 H Lymph # (Auto) 1.1 L [place] # (Auto) 2.0 H Eos # (Auto) 0.0 Baso # (Auto) 0.02 PT INR APTT pO2 VBG pH VBG pCO2 VBG HCO3 VBG Total CO2 VBG O2 Sat (Calc) VBG Base Excess VBG Potassium Glucose Lactate FiO2 Sodium Potassium Chloride Carbon Dioxide Anion Gap BUN Creatinine Est GFR ( Amer) Est GFR (Non-Af Amer) POC Glucose (mg/dL) Random Glucose Calcium Phosphorus Magnesium Total Bilirubin AST ALT Alkaline Phosphatase Lactate Dehydrogenase 1657 H Total Creatine Kinase 114 Troponin I < 0.01 Total Protein Albumin Globulin Albumin/Globulin Ratio Lipase Carcinoembryonic Ag 90642.0 H Venous Blood Potassium Urine Color Urine Appearance Urine pH Ur Specific [place] Urine Protein Urine Glucose (UA) Urine Ketones Urine Blood Urine Nitrate Urine Bilirubin Urine Urobilinogen Ur Leukocyte Esterase Urine RBC Urine WBC Ur Epithelial Cells Urine Bacteria Blood Type Blood Type Confirm Antibody Screen BBK History Checked 05/18/18 05/18/18 05/18/18 18:24 18:37 19:00 WBC RBC Hgb Hct MCV MCH MCHC RDW Plt Count MPV Gran % Lymph % (Auto) [place] % (Auto) Eos % (Auto) Baso % (Auto) Gran # Lymph # (Auto) [place] # (Auto) Eos # (Auto) Baso # (Auto) PT INR APTT pO2 VBG pH VBG pCO2 VBG HCO3 VBG Total CO2 VBG O2 Sat (Calc) VBG Base Excess VBG Potassium Glucose Lactate FiO2 Sodium Potassium Chloride Carbon Dioxide Anion Gap BUN Creatinine Est GFR ( Amer) Est GFR (Non-Af Amer) POC Glucose (mg/dL) 366 H Random Glucose Calcium Phosphorus Magnesium Total Bilirubin AST ALT Alkaline Phosphatase Lactate Dehydrogenase Total Creatine Kinase Troponin I Total Protein Albumin Globulin Albumin/Globulin Ratio Lipase Carcinoembryonic Ag Venous Blood Potassium Urine Color Yellow Urine Appearance Clear Urine pH 6.0 Ur Specific [place] 1.025 Urine Protein >=300 H Urine Glucose (UA) 250 H Urine Ketones Negative Urine Blood Small H Urine Nitrate Negative Urine Bilirubin Negative Urine Urobilinogen 1.0 H Ur Leukocyte Esterase Negative Urine RBC 5 - 10 H Urine WBC 2 - 5 Ur Epithelial Cells 0 - 2 Urine Bacteria Mod Blood Type Blood Type Confirm O POSITIVE Antibody Screen BBK History Checked 05/18/18 05/18/18 05/18/18 19:21 20:25 21:50 WBC RBC Hgb Hct MCV MCH MCHC RDW Plt Count MPV Gran % Lymph % (Auto) [place] % (Auto) Eos % (Auto) Baso % (Auto) Gran # Lymph # (Auto) [place] # (Auto) Eos # (Auto) Baso # (Auto) PT INR APTT pO2 VBG pH VBG pCO2 VBG HCO3 VBG Total CO2 VBG O2 Sat (Calc) VBG Base Excess VBG Potassium Glucose Lactate FiO2 Sodium Potassium Chloride Carbon Dioxide Anion Gap BUN Creatinine Est GFR ( Amer) Est GFR (Non-Af Amer) POC Glucose (mg/dL) 309 H 292 H 256 H Random Glucose Calcium Phosphorus Magnesium Total Bilirubin AST ALT Alkaline Phosphatase Lactate Dehydrogenase Total Creatine Kinase Troponin I Total Protein Albumin Globulin Albumin/Globulin Ratio Lipase Carcinoembryonic Ag Venous Blood Potassium Urine Color Urine Appearance Urine pH Ur Specific [place] Urine Protein Urine Glucose (UA) Urine Ketones Urine Blood Urine Nitrate Urine Bilirubin Urine Urobilinogen Ur Leukocyte Esterase Urine RBC Urine WBC Ur Epithelial Cells Urine Bacteria Blood Type Blood Type Confirm Antibody Screen BBK History Checked 05/18/18 05/19/18 05/19/18 22:13 03:12 04:25 WBC 15.8 H RBC 3.56 Hgb 9.3 L Hct 28.1 L MCV 78.9 L MCH 26.1 MCHC 33.1 RDW 13.8 Plt Count 489 H MPV 9.9 Gran % 82.7 H Lymph % (Auto) 6.1 L [place] % (Auto) 11.0 H Eos % (Auto) 0.1 L Baso % (Auto) 0.1 Gran # 13.11 H Lymph # (Auto) 1.0 L [place] # (Auto) 1.7 H Eos # (Auto) 0.0 Baso # (Auto) 0.02 PT INR APTT pO2 115 H VBG pH 7.38 VBG pCO2 39.0 L VBG HCO3 23.1 VBG Total CO2 24.3 VBG O2 Sat (Calc) 98.6 H VBG Base Excess -1.8 L VBG Potassium 4.0 Glucose 266 H Lactate 1.1 FiO2 21.0 Sodium 131.0 L Potassium Chloride 101.0 Carbon Dioxide Anion Gap BUN Creatinine Est GFR ( Amer) Est GFR (Non-Af Amer) POC Glucose (mg/dL) 255 H Random Glucose Calcium Phosphorus Magnesium Total Bilirubin AST ALT Alkaline Phosphatase Lactate Dehydrogenase Total Creatine Kinase Troponin I Total Protein Albumin Globulin Albumin/Globulin Ratio Lipase Carcinoembryonic Ag Venous Blood Potassium 4.0 Urine Color Urine Appearance Urine pH Ur Specific [place] Urine Protein Urine Glucose (UA) Urine Ketones Urine Blood Urine Nitrate Urine Bilirubin Urine Urobilinogen Ur Leukocyte Esterase Urine RBC Urine WBC Ur Epithelial Cells Urine Bacteria Blood Type Blood Type Confirm Antibody Screen BBK History Checked 05/19/18 04:25 WBC RBC Hgb Hct MCV MCH MCHC RDW Plt Count MPV Gran % Lymph % (Auto) [place] % (Auto) Eos % (Auto) Baso % (Auto) Gran # Lymph # (Auto) [place] # (Auto) Eos # (Auto) Baso # (Auto) PT INR APTT pO2 VBG pH VBG pCO2 VBG HCO3 VBG Total CO2 VBG O2 Sat (Calc) VBG Base Excess VBG Potassium Glucose Lactate FiO2 Sodium 133 Potassium 4.4 Chloride 101 Carbon Dioxide 24 Anion Gap 12 BUN 29 H Creatinine 1.4 Est GFR ( Amer) > 60 Est GFR (Non-Af Amer) 51 POC Glucose (mg/dL) Random Glucose 243 H Calcium 8.5 Phosphorus 3.8 Magnesium 1.9 Total Bilirubin 0.4 AST 46 ALT 44 Alkaline Phosphatase 986 H D Lactate Dehydrogenase Total Creatine Kinase Troponin I Total Protein 6.4 Albumin 2.8 L Globulin 3.5 Albumin/Globulin Ratio 0.8 L Lipase Carcinoembryonic Ag Venous Blood Potassium Urine Color Urine Appearance Urine pH Ur Specific [place] Urine Protein Urine Glucose (UA) Urine Ketones Urine Blood Urine Nitrate Urine Bilirubin Urine Urobilinogen Ur Leukocyte Esterase Urine RBC Urine WBC Ur Epithelial Cells Urine Bacteria Blood Type Blood Type Confirm Antibody Screen BBK History Checked Attending/Attestation - Attestation I have personally seen and examined this patient.: Yes I have fully participated in the care of the patient.: Yes I have reviewed all pertinent clinical information: Yes
[2018-05-19 01:00] LABS: TROPONIN I < 0.01 ng/mL
[2018-05-19 02:45] VITALS: BMI 18.8
[2018-05-19] MEDS ORDERED: Insulin Detemir 100 units/ml Vial (Levemir) SC ONE (03:16)
[2018-05-19] MEDS: Sodium Chloride 0.9% 1,000 ML IV SCH ×2 (03:33→16:49)
[2018-05-19] MEDS ORDERED: Sod Polystyrene Sulf 15 gm/60 ml Susp PO ONE (04:00)
[2018-05-19 04:40] LABS: BASO # 0.02 K/mm3 (0.0-2.0); BASO % 0.1 % (0.0-3.0); EOS % 0.1 % (1.5-5.0); GRAN # 13.11 (1.4-6.5); GRAN % 82.7 % (50.0-68.0); HEMOGLOBIN 9.3 g/dL (14.0-18.0); LYMPH % 6.1 % (22.0-35.0); MEAN CELL VOLUME 78.9 fl (80.0-105.0); MEAN CORPUSCULAR HEMOGLOBIN 26.1 pg (25.0-35.0); MEAN CORPUSCULAR HGB CONC 33.1 g/dl (31.0-37.0); MEAN PLATELET VOLUME 9.9 fl (7.0-11.0); MONO # 1.7 (0.1-0.6); PLATELET COUNT 489 10^3/uL (120.0-450.0); RBC 3.56 10^6/uL (3.5-6.1); RED CELL DISTRIBUTION WIDTH 13.8 % (11.5-14.5); WHITE BLOOD COUNT 15.8 10^3/uL (4.5-11.0)
[2018-05-19 05:18] LABS: ALB/GLOB RATIO 0.8 (1.1-1.8); ALBUMIN 2.8 g/dL (3.0-4.8); ALT/SGPT 44 U/L (7-56); AST/SGOT 46 U/L (17-59); BLOOD UREA NITROGEN 29 mg/dL (7-21); CALCIUM 8.5 mg/dL (8.4-10.5); GFR NON-AFRICAN AMERICAN 51
[2018-05-19 06:11] LABS: % IRON SATURATION 6 % (20-55); IRON 12 ug/dL (45-180); TOTAL IRON BINDING CAPACITY 198 ug/dL (261-462)
[2018-05-19] MEDS: Insulin Reg-MEDIUM-Coverage SC SCH ×4 (08:03→21:16)
--- NOTE | 2018-05-19 08:05 | CP.PCM.PN ---
Subjective - Date & Time of Evaluation Date of Evaluation: 05/19/18 Time of Evaluation: 07:02 - Subjective Subjective: PGY-1 Laure Peter D.O. Surgery progress note for Dr. Salazar: Patient was seen and examined this morning. He reports having some trouble swallowing solids but is tolerating clear liquids. Denies nausea and vomiting. His abdominal pain has improved. He has not had a BM since being hospitalized, but is passing gas. Objective - Vital Signs/Intake and Output Vital Signs (last 24 hours): Temp Pulse Resp BP Pulse Ox 97.6 F 87 20 164/75 H 97 05/19/18 01:40 05/19/18 02:00 05/19/18 01:44 05/19/18 01:40 05/19/18 01:40 Intake and Output: 05/19/18 05/19/18 06:59 18:59 Intake Total 60 Output Total 225 Balance -165 - Medications Medications: Current Medications Atorvastatin Calcium (Lipitor) 40 mg PO HS EMMA Heparin Sodium (Porcine) (Heparin) 5,000 units SC Q8H EMMA; Protocol Last Admin: 05/19/18 03:33 Dose: 5,000 units Sodium Chloride (Sodium Chloride 0.9%) 1,000 mls @ 100 mls/hr IV .Q10H EMMA Last Admin: 05/19/18 03:33 Dose: 100 mls/hr Insulin Human Regular (Humulin R Med) 0 units SC ACHS EMMA; Protocol Pantoprazole Sodium (Protonix Inj) 40 mg IVP DAILY EMMA - Labs Labs: 05/19/18 04:25 05/19/18 04:25 PT 11.7 SECONDS (9.4-12.5) 05/18/18 17:58 INR 1.03 05/18/18 17:58 APTT 33.0 Seconds (25.1-36.5) 05/18/18 17:58 - Constitutional Appears: Non-toxic, No Acute Distress, Older Than Stated Age - Head Exam Head Exam: ATRAUMATIC, NORMAL INSPECTION - Eye Exam Eye Exam: EOMI, Normal appearance - ENT Exam ENT Exam: Mucous Membranes Moist - Respiratory Exam Respiratory Exam: NORMAL BREATHING PATTERN. absent: Accessory Muscle Use, Respiratory Distress - Cardiovascular Exam Cardiovascular Exam: RRR - GI/Abdominal Exam GI & Abdominal Exam: Soft. absent: Distended, Tenderness, Mass, Rebound - Extremities Exam Extremities Exam: Normal Inspection - Neurological Exam Neurological Exam: Alert, Awake, Oriented x3 - Psychiatric Exam Psychiatric exam: Normal Affect, Normal Mood - Skin Skin Exam: Dry, Normal Color, Warm Assessment and Plan - Assessment and Plan (Free Text) Assessment: 62M with diffuse metastatic disease, unknown primary but diffuse nodular thickening noted at the distal esophagus and GE junction and lung nodules on CT, admitted for incidental finding of intussusception in RUQ on CT. - CEA 25,300 - LDH 1657 - Alk phos 1377 Plan: - Serial abdominal exams- if patient develops signs of acute obstruction/acute abdomen will proceed to OR - Clear liquids - CA 125, CA 19-9 pending - f/u Hem/onc and GI recs - Encourage smoking cessation Further recs as per attending, Dr. Salazar.
--- NOTE | 2018-05-19 08:18 | CT ---
Date of service: 05/18/2018 PROCEDURE: CT Abdomen and Pelvis with contrast HISTORY: abnormal CT COMPARISON: Chest CT without contrast 05/18/2018. TECHNIQUE: Helical CT of the abdomen and pelvis was performed following oral contrast administration only. Intravenous contrast was not administered as per referring physician request. Coronal and sagittal reformats were generated. Contrast dose: None Radiation dose: Total exam DLP = 308.23 mGy-cm. This CT exam was performed using one or more of the following dose reduction techniques: Automated exposure control, adjustment of the mA and/or kV according to patient size, and/or use of iterative reconstruction technique. FINDINGS: LOWER THORAX: Scattered pulmonary nodules are reiterated suspicious for metastasis including a left lower lobe 1.8 cm nodule abutting the left hemidiaphragm in image 26 series 3 as the largest of nodule identified at both lung bases. 0.3 irregular nodule is also identified the left lower lobe in image 7. LIVER: Heterogeneous density throughout the liver suggests metastatic disease once again. GALLBLADDER AND BILE DUCTS: Pericholecystic fluid is questioned surrounding the gallbladder probable limited vicarious excretion of iodinated contrast material in the lumen. PANCREAS: Chronic pancreatitis pattern reiterated. SPLEEN: Unremarkable. ADRENALS: Unremarkable. No mass. KIDNEYS AND URETERS: No hydronephrosis. Nonspecific questionable bilateral renal edema questioned which trace excreted iodinated contrast material identified. VASCULATURE: Nonaneurysmal abdominal aortic calcific atherosclerotic changes are identified. BOWEL: Prior right upper quadrant intussusception is likely only partially reduced with oral contrast traversing the segment. This is not an obstructing intussusception. A distinct mass is not clearly identified however this is the noncontrast CT and a mass may be present the lumen as the etiology of this intussusception. Clinically correlate further. Prominent retained fecal material scattered throughout large-bowel once again. All contrast opacifies the right hemicolon. APPENDIX: Not clearly identified. No definite pattern of appendicitis grossly. PERITONEUM: Anasarca related increased density of mesentery and extra abdominal fat is identified. Trace fluid is identified in the pelvis. No generalized ascites. LYMPH NODES: Gross retroperitoneal lymphadenopathy is appreciated approximating the peripancreatic/pericaval space once again. BLADDER: Urinary bladder is unremarkable, distended with excreted iodinated contrast material with smooth internal mural contour identified. No nodularity or suspicious filling defect. REPRODUCTIVE: Mildly enlarged prostate gland identified. BONES: No acute fracture. OTHER FINDINGS: Cachexia. IMPRESSION: 1. Partial reduction of intussusception likely. No bowel obstruction nevertheless oral contrast opacifying small and right-sided large-bowel segments. 2. Multifocal metastases identified in the lung bases and liver is well as retroperitoneum once again. Consider this is an etiology of the intussusception as well though no definitive small bowel masses clearly identifiable at this time. 3. Mild anasarca. Cachexia. 4. Other lesser findings as discussed above.
--- NOTE | 2018-05-19 11:31 | CP.PCM.CON ---
<Callum Wan - Last Filed: 05/19/18 12:14> History of Present Illness - History of Present Illness History of Present Illness: PGY-4 GI Fellow Consult Note 62 year old male with a PMx of DM, Tob Abuse, HLD, HTN, and anxiety sent in by his PCP for an abnormal CT abdomen/chest which showed multiple liver lesions consistent with metastatic disease in the liver and lung lesions (mets vs p rimary) and a small bowel intussusception in the RUQ. Patient reports 20 lb unintentional weight loss and solid-food dysphagia for about 1 month duration. Denies any dysphagia with liquids. He eats a soft diet at home. Patient complained of constipation for 1 week duration which has resolved with Miralax. Patient had numerous BMs yesterday, he described the BMs as diarrhea and/or soft. He also felt the stool was being retained in his anal area. Patient denies fevers, chills, vomiting, hemoptysis, blood or mucous in the stool. 12 point ROS negative other than stated above MHx: See above SurgHx: R open inguinal hernia repair as a child, Bilateral rotator cuff repair L 10 yrs. ago, R 3 yrs. ago. Meds: Reviewed in chart FamHx: Mother of Lung CA/Breast CA. Father of heart attack. Social: 80 pack year smoking history. Currently smokes 1/2 pack per day. Admits to quitting for 9 months in the past but was triggered by stress to start again. Denies current alcohol use. Admits to heavy drinking in the past which he quit 20 years ago. Denies illicit drug use. Patient is currently retired. He eats a soft diet. All: NKDA Endos EGD ~ 8 years ago, results unknown CSPY: Never done Past Patient History - Infectious Disease Hx of Infectious Diseases: None - Past Social History Smoking Status: Heavy Smoker > 10 Cigarettes Daily - CARDIAC Hx Hypertension: Yes - PULMONARY Hx Bronchitis: Yes (last week) - NEUROLOGICAL Hx Neurological Disorder: Yes (neuropathy both legs pins/needles) - HEENT Hx HEENT Problems: Yes (eyeglasses) - ENDOCRINE/METABOLIC Hx Diabetes Mellitus Type 2: Yes - MUSCULOSKELETAL/RHEUMATOLOGICAL Hx Falls: No - PSYCHIATRIC Hx Substance Use: No - SURGICAL HISTORY Other/Comment: bilat rotated cuff left 10 yrs ago right 3 yrs ago, hernioraphy as a child - ANESTHESIA Hx Anesthesia: Yes Hx Anesthesia Reactions: No Hx Malignant Hyperthermia: No Meds Allergies/Adverse Reactions: Allergies Allergy/AdvReac Type Severity Reaction Status Date / Time No Known Allergies Allergy Verified 07/30/15 11:51 - Medications Medications: Current Medications Atorvastatin Calcium (Lipitor) 40 mg PO HS EMMA Heparin Sodium (Porcine) (Heparin) 5,000 units SC Q8H [facility]; Protocol Last Admin: 05/19/18 09:07 Dose: 5,000 units Sodium Chloride (Sodium Chloride 0.9%) 1,000 mls @ 100 mls/hr IV .Q10H EMMA Last Admin: 05/19/18 03:33 Dose: 100 mls/hr Insulin Human Regular (Humulin R Med) 0 units SC ACHS [facility]; Protocol Last Admin: 05/19/18 08:03 Dose: Not Given Pantoprazole Sodium (Protonix Inj) 40 mg IVP DAILY [facility] Last Admin: 05/19/18 09:06 Dose: 40 mg Physical Exam - Constitutional Appears: No Acute Distress, Chronically Ill - Head Exam Head Exam: ATRAUMATIC, NORMAL INSPECTION - Eye Exam Eye Exam: EOMI. absent: Scleral icterus - ENT Exam ENT Exam: Mucous Membranes Dry. absent: Mucous Membranes Moist - Respiratory Exam Respiratory Exam: NORMAL BREATHING PATTERN. absent: Accessory Muscle Use, Respiratory Distress - Cardiovascular Exam Cardiovascular Exam: REGULAR RHYTHM, RRR - GI/Abdominal Exam GI & Abdominal Exam: Normal Bowel Sounds, Soft. absent: Bruit, Diminished Bowel Sounds, Distended, Firm, Guarding, Hernia, Mass, Organomegaly, Pulsatile Mass, Rebound, Rigid, Tenderness - Rectal Exam Rectal Exam: Deferred - Extremities Exam Extremities exam: Positive for: normal inspection. Negative for: pedal edema - Neurological Exam Neurological exam: Alert, CN II-XII Intact - Psychiatric Exam Psychiatric exam: Normal Affect, Normal Mood - Skin Skin Exam: Normal Color, Warm Results - Vital Signs Recent Vital Signs: Last Vital Signs Temp 98.3 F 05/19/18 08:24 Pulse 82 05/19/18 08:24 Resp 20 05/19/18 08:24 BP 137/72 05/19/18 08:24 Pulse Ox 97 05/19/18 08:24 - Labs Result Diagrams: 05/19/18 04:25 05/19/18 04:25 Labs: Laboratory Results - last 24 hr 05/18/18 05/18/18 05/18/18 17:45 17:58 17:58 WBC RBC Hgb Hct MCV MCH MCHC RDW Plt Count MPV Gran % Lymph % (Auto) [place] % (Auto) Eos % (Auto) Baso % (Auto) Gran # Lymph # (Auto) [place] # (Auto) Eos # (Auto) Baso # (Auto) PT 11.7 INR 1.03 APTT 33.0 pO2 VBG pH VBG pCO2 VBG HCO3 VBG Total CO2 VBG O2 Sat (Calc) VBG Base Excess VBG Potassium Glucose Lactate FiO2 Sodium 133 Potassium 5.9 H* D Chloride 100 Carbon Dioxide 27 Anion Gap 13 BUN 33 H Creatinine 1.4 Est GFR ( Amer) > 60 Est GFR (Non-Af Amer) 51 POC Glucose (mg/dL) Random Glucose 380 H* D Calcium 9.3 Phosphorus Magnesium Iron TIBC % Saturation Total Bilirubin 0.5 AST 65 H ALT 54 Alkaline Phosphatase 1377 H Lactate Dehydrogenase Total Creatine Kinase Troponin I Total Protein 7.8 Albumin 3.4 Globulin 4.4 Albumin/Globulin Ratio 0.8 L Lipase 73 Carcinoembryonic Ag Venous Blood Potassium Urine Color Urine Appearance Urine pH Ur Specific [place] Urine Protein Urine Glucose (UA) Urine Ketones Urine Blood Urine Nitrate Urine Bilirubin Urine Urobilinogen Ur Leukocyte Esterase Urine RBC Urine WBC Ur Epithelial Cells Urine Bacteria Blood Type O POSITIVE Blood Type Confirm Antibody Screen Negative BBK History Checked No verified bt 05/18/18 05/18/18 05/18/18 17:58 17:58 18:00 WBC 18.9 H RBC 4.14 Hgb 10.9 L Hct 33.2 L MCV 80.2 MCH 26.3 MCHC 32.8 RDW 14.0 Plt Count 716 H* D MPV 10.3 Gran % 83.6 H Lymph % (Auto) 5.9 L [place] % (Auto) 10.3 H Eos % (Auto) 0.1 L Baso % (Auto) 0.1 Gran # 15.75 H Lymph # (Auto) 1.1 L [place] # (Auto) 2.0 H Eos # (Auto) 0.0 Baso # (Auto) 0.02 PT INR APTT pO2 VBG pH VBG pCO2 VBG HCO3 VBG Total CO2 VBG O2 Sat (Calc) VBG Base Excess VBG Potassium Glucose Lactate FiO2 Sodium Potassium Chloride Carbon Dioxide Anion Gap BUN Creatinine Est GFR ( Amer) Est GFR (Non-Af Amer) POC Glucose (mg/dL) Random Glucose Calcium Phosphorus Magnesium Iron TIBC % Saturation Total Bilirubin AST ALT Alkaline Phosphatase Lactate Dehydrogenase 1657 H Total Creatine Kinase 114 Troponin I < 0.01 Total Protein Albumin Globulin Albumin/Globulin Ratio Lipase Carcinoembryonic Ag 31653.0 H Venous Blood Potassium Urine Color Urine Appearance Urine pH Ur Specific [place] Urine Protein Urine Glucose (UA) Urine Ketones Urine Blood Urine Nitrate Urine Bilirubin Urine Urobilinogen Ur Leukocyte Esterase Urine RBC Urine WBC Ur Epithelial Cells Urine Bacteria Blood Type Blood Type Confirm Antibody Screen BBK History Checked 05/18/18 05/18/18 05/18/18 18:24 18:37 19:00 WBC RBC Hgb Hct MCV MCH MCHC RDW Plt Count MPV Gran % Lymph % (Auto) [place] % (Auto) Eos % (Auto) Baso % (Auto) Gran # Lymph # (Auto) [place] # (Auto) Eos # (Auto) Baso # (Auto) PT INR APTT pO2 VBG pH VBG pCO2 VBG HCO3 VBG Total CO2 VBG O2 Sat (Calc) VBG Base Excess VBG Potassium Glucose Lactate FiO2 Sodium Potassium Chloride Carbon Dioxide Anion Gap BUN Creatinine Est GFR ( Amer) Est GFR (Non-Af Amer) POC Glucose (mg/dL) 366 H Random Glucose Calcium Phosphorus Magnesium Iron TIBC % Saturation Total Bilirubin AST ALT Alkaline Phosphatase Lactate Dehydrogenase Total Creatine Kinase Troponin I Total Protein Albumin Globulin Albumin/Globulin Ratio Lipase Carcinoembryonic Ag Venous Blood Potassium Urine Color Yellow Urine Appearance Clear Urine pH 6.0 Ur Specific [place] 1.025 Urine Protein >=300 H Urine Glucose (UA) 250 H Urine Ketones Negative Urine Blood Small H Urine Nitrate Negative Urine Bilirubin Negative Urine Urobilinogen 1.0 H Ur Leukocyte Esterase Negative Urine RBC 5 - 10 H Urine WBC 2 - 5 Ur Epithelial Cells 0 - 2 Urine Bacteria Mod Blood Type Blood Type Confirm O POSITIVE Antibody Screen BBK History Checked 05/18/18 05/18/18 05/18/18 19:21 20:25 21:50 WBC RBC Hgb Hct MCV MCH MCHC RDW Plt Count MPV Gran % Lymph % (Auto) [place] % (Auto) Eos % (Auto) Baso % (Auto) Gran # Lymph # (Auto) [place] # (Auto) Eos # (Auto) Baso # (Auto) PT INR APTT pO2 VBG pH VBG pCO2 VBG HCO3 VBG Total CO2 VBG O2 Sat (Calc) VBG Base Excess VBG Potassium Glucose Lactate FiO2 Sodium Potassium Chloride Carbon Dioxide Anion Gap BUN Creatinine Est GFR ( Amer) Est GFR (Non-Af Amer) POC Glucose (mg/dL) 309 H 292 H 256 H Random Glucose Calcium Phosphorus Magnesium Iron TIBC % Saturation Total Bilirubin AST ALT Alkaline Phosphatase Lactate Dehydrogenase Total Creatine Kinase Troponin I Total Protein Albumin Globulin Albumin/Globulin Ratio Lipase Carcinoembryonic Ag Venous Blood Potassium Urine Color Urine Appearance Urine pH Ur Specific [place] Urine Protein Urine Glucose (UA) Urine Ketones Urine Blood Urine Nitrate Urine Bilirubin Urine Urobilinogen Ur Leukocyte Esterase Urine RBC Urine WBC Ur Epithelial Cells Urine Bacteria Blood Type Blood Type Confirm Antibody Screen BBK History Checked 05/18/18 05/19/18 05/19/18 22:13 03:12 04:25 WBC RBC Hgb Hct MCV MCH MCHC RDW Plt Count MPV Gran % Lymph % (Auto) [place] % (Auto) Eos % (Auto) Baso % (Auto) Gran # Lymph # (Auto) [place] # (Auto) Eos # (Auto) Baso # (Auto) PT INR APTT pO2 115 H VBG pH 7.38 VBG pCO2 39.0 L VBG HCO3 23.1 VBG Total CO2 24.3 VBG O2 Sat (Calc) 98.6 H VBG Base Excess -1.8 L VBG Potassium 4.0 Glucose 266 H Lactate 1.1 FiO2 21.0 Sodium 131.0 L Potassium Chloride 101.0 Carbon Dioxide Anion Gap BUN Creatinine Est GFR ( Amer) Est GFR (Non-Af Amer) POC Glucose (mg/dL) 255 H Random Glucose Calcium Phosphorus Magnesium Iron 12 L TIBC 198 L % Saturation 6 L Total Bilirubin AST ALT Alkaline Phosphatase Lactate Dehydrogenase Total Creatine Kinase Troponin I Total Protein Albumin Globulin Albumin/Globulin Ratio Lipase Carcinoembryonic Ag Venous Blood Potassium 4.0 Urine Color Urine Appearance Urine pH Ur Specific [place] Urine Protein Urine Glucose (UA) Urine Ketones Urine Blood Urine Nitrate Urine Bilirubin Urine Urobilinogen Ur Leukocyte Esterase Urine RBC Urine WBC Ur Epithelial Cells Urine Bacteria Blood Type Blood Type Confirm Antibody Screen BBK History Checked 05/19/18 05/19/18 05/19/18 04:25 04:25 07:46 WBC 15.8 H RBC 3.56 Hgb 9.3 L Hct 28.1 L MCV 78.9 L MCH 26.1 MCHC 33.1 RDW 13.8 Plt Count 489 H MPV 9.9 Gran % 82.7 H Lymph % (Auto) 6.1 L [place] % (Auto) 11.0 H Eos % (Auto) 0.1 L Baso % (Auto) 0.1 Gran # 13.11 H Lymph # (Auto) 1.0 L [place] # (Auto) 1.7 H Eos # (Auto) 0.0 Baso # (Auto) 0.02 PT INR APTT pO2 VBG pH VBG pCO2 VBG HCO3 VBG Total CO2 VBG O2 Sat (Calc) VBG Base Excess VBG Potassium Glucose Lactate FiO2 Sodium 133 Potassium 4.4 Chloride 101 Carbon Dioxide 24 Anion Gap 12 BUN 29 H Creatinine 1.4 Est GFR ( Amer) > 60 Est GFR (Non-Af Amer) 51 POC Glucose (mg/dL) 97 Random Glucose 243 H Calcium 8.5 Phosphorus 3.8 Magnesium 1.9 Iron TIBC % Saturation Total Bilirubin 0.4 AST 46 ALT 44 Alkaline Phosphatase 986 H D Lactate Dehydrogenase Total Creatine Kinase Troponin I Total Protein 6.4 Albumin 2.8 L Globulin 3.5 Albumin/Globulin Ratio 0.8 L Lipase Carcinoembryonic Ag Venous Blood Potassium Urine Color Urine Appearance Urine pH Ur Specific [place] Urine Protein Urine Glucose (UA) Urine Ketones Urine Blood Urine Nitrate Urine Bilirubin Urine Urobilinogen Ur Leukocyte Esterase Urine RBC Urine WBC Ur Epithelial Cells Urine Bacteria Blood Type Blood Type Confirm Antibody Screen BBK History Checked Assessment & Plan - Assessment and Plan (Free Text) Assessment: 62 yo WM with h/o HTN, Tob Abuse, DM presenting with dysphagia, weight loss found to have intussusception, multiple liver and lung masses/nodules, esophageal thickening. # Dysphagia: Solid only. Given weight loss and CT findings of thickened esophagus, malignancy of utmost concern. Will need EGD for further evaluation. # Intussusception: Entero-entero in RUQ. Suspect related to underlying malignancy (likely met rather than primary). # Liver, Lung masses/nodules: Liver likely metastatic lesions (from esophageal, colon, less likely lung). Lung nodules/masses, pt had known history of lung nodules and never followed up with ongoing tob abuse suspicious for lung primary malignancy, but could be mets from rectal CA if present as never had CSPY and reports that stool sometimes hard to pass. Plan: - Plan for EGD on 05/20/18 - Miralax QID - NPO at [facility] - F/u Liver biopsy results - May need CSPY pending course - Gen Surg consulted Pt seen and examined with Dr. Araujo; please see attestation for further recs/changes. <Susan Katz - Last Filed: 05/19/18 14:50> Meds - Medications Medications: Current Medications Atorvastatin Calcium (Lipitor) 40 mg PO HS EMMA Heparin Sodium (Porcine) (Heparin) 5,000 units SC Q8H [facility]; Protocol Last Admin: 05/19/18 09:07 Dose: 5,000 units Sodium Chloride (Sodium Chloride 0.9%) 1,000 mls @ 100 mls/hr IV .Q10H [facility]MA Last Admin: 05/19/18 03:33 Dose: 100 mls/hr Insulin Human Regular (Humulin R Med) 0 units SC ACHS [facility]; Protocol Last Admin: 05/19/18 11:56 Dose: Not Given Pantoprazole Sodium (Protonix Inj) 40 mg IVP DAILY [facility] Last Admin: 05/19/18 09:06 Dose: 40 mg Polyethylene Glycol (Miralax) 17 gm PO QID [facility]MA Stop: 05/20/18 06:00 Last Admin: 05/19/18 14:24 Dose: Not Given Results - Vital Signs Recent Vital Signs: Last Vital Signs Temp 98.3 F 05/19/18 08:24 Pulse 89 05/19/18 10:00 Resp 20 05/19/18 08:24 BP 137/72 05/19/18 08:24 Pulse Ox 97 05/19/18 08:24 - Labs Result Diagrams: 05/19/18 04:25 05/19/18 04:25 Labs: Laboratory Results - last 24 hr 05/18/18 05/18/18 05/18/18 17:45 17:58 17:58 WBC RBC Hgb Hct MCV MCH MCHC RDW Plt Count MPV Gran % Lymph % (Auto) [place] % (Auto) Eos % (Auto) Baso % (Auto) Gran # Lymph # (Auto) [place] # (Auto) Eos # (Auto) Baso # (Auto) Differential Comment PT 11.7 INR 1.03 APTT 33.0 pO2 VBG pH VBG pCO2 VBG HCO3 VBG Total CO2 VBG O2 Sat (Calc) VBG Base Excess VBG Potassium Glucose Lactate FiO2 Sodium 133 Potassium 5.9 H* D Chloride 100 Carbon Dioxide 27 Anion Gap 13 BUN 33 H Creatinine 1.4 Est GFR ( Amer) > 60 Est GFR (Non-Af Amer) 51 POC Glucose (mg/dL) Random Glucose 380 H* D Calcium 9.3 Phosphorus Magnesium Iron TIBC % Saturation Total Bilirubin 0.5 AST 65 H ALT 54 Alkaline Phosphatase 1377 H Lactate Dehydrogenase Total Creatine Kinase Troponin I Total Protein 7.8 Albumin 3.4 Globulin 4.4 Albumin/Globulin Ratio 0.8 L Lipase 73 Carcinoembryonic Ag CA 19-9 Antigen CA 125 Antigen Venous Blood Potassium Urine Color Urine Appearance Urine pH Ur Specific [place] Urine Protein Urine Glucose (UA) Urine Ketones Urine Blood Urine Nitrate Urine Bilirubin Urine Urobilinogen Ur Leukocyte Esterase Urine RBC Urine WBC Ur Epithelial Cells Urine Bacteria Blood Type O POSITIVE Blood Type Confirm Antibody Screen Negative BBK History Checked No verified bt 05/18/18 05/18/18 05/18/18 17:58 17:58 18:00 WBC 18.9 H RBC 4.14 Hgb 10.9 L Hct 33.2 L MCV 80.2 MCH 26.3 MCHC 32.8 RDW 14.0 Plt Count 716 H* D MPV 10.3 Gran % 83.6 H Lymph % (Auto) 5.9 L [place] % (Auto) 10.3 H Eos % (Auto) 0.1 L Baso % (Auto) 0.1 Gran # 15.75 H Lymph # (Auto) 1.1 L [place] # (Auto) 2.0 H Eos # (Auto) 0.0 Baso # (Auto) 0.02 Differential Comment PT INR APTT pO2 VBG pH VBG pCO2 VBG HCO3 VBG Total CO2 VBG O2 Sat (Calc) VBG Base Excess VBG Potassium Glucose Lactate FiO2 Sodium Potassium Chloride Carbon Dioxide Anion Gap BUN Creatinine Est GFR ( Amer) Est GFR (Non-Af Amer) POC Glucose (mg/dL) Random Glucose Calcium Phosphorus Magnesium Iron TIBC % Saturation Total Bilirubin AST ALT Alkaline Phosphatase Lactate Dehydrogenase 1657 H Total Creatine Kinase 114 Troponin I < 0.01 Total Protein Albumin Globulin Albumin/Globulin Ratio Lipase Carcinoembryonic Ag CA 19-9 Antigen 864 H CA 125 Antigen 1220 H Venous Blood Potassium Urine Color Urine Appearance Urine pH Ur Specific [place] Urine Protein Urine Glucose (UA) Urine Ketones Urine Blood Urine Nitrate Urine Bilirubin Urine Urobilinogen Ur Leukocyte Esterase Urine RBC Urine WBC Ur Epithelial Cells Urine Bacteria Blood Type Blood Type Confirm Antibody Screen BBK History Checked 05/18/18 05/18/18 05/18/18 18:00 18:24 18:37 WBC RBC Hgb Hct MCV MCH MCHC RDW Plt Count MPV Gran % Lymph % (Auto) [place] % (Auto) Eos % (Auto) Baso % (Auto) Gran # Lymph # (Auto) [place] # (Auto) Eos # (Auto) Baso # (Auto) Differential Comment PT INR APTT pO2 VBG pH VBG pCO2 VBG HCO3 VBG Total CO2 VBG O2 Sat (Calc) VBG Base Excess VBG Potassium Glucose Lactate FiO2 Sodium Potassium Chloride Carbon Dioxide Anion Gap BUN Creatinine Est GFR ( Amer) Est GFR (Non-Af Amer) POC Glucose (mg/dL) 366 H Random Glucose Calcium Phosphorus Magnesium Iron TIBC % Saturation Total Bilirubin AST ALT Alkaline Phosphatase Lactate Dehydrogenase Total Creatine Kinase Troponin I Total Protein Albumin Globulin Albumin/Globulin Ratio Lipase Carcinoembryonic Ag 43417.0 H CA 19-9 Antigen CA 125 Antigen Venous Blood Potassium Urine Color Urine Appearance Urine pH Ur Specific [place] Urine Protein Urine Glucose (UA) Urine Ketones Urine Blood Urine Nitrate Urine Bilirubin Urine Urobilinogen Ur Leukocyte Esterase Urine RBC Urine WBC Ur Epithelial Cells Urine Bacteria Blood Type Blood Type Confirm O POSITIVE Antibody Screen BBK History Checked 05/18/18 05/18/18 05/18/18 19:00 19:21 20:25 WBC RBC Hgb Hct MCV MCH MCHC RDW Plt Count MPV Gran % Lymph % (Auto) [place] % (Auto) Eos % (Auto) Baso % (Auto) Gran # Lymph # (Auto) [place] # (Auto) Eos # (Auto) Baso # (Auto) Differential Comment PT INR APTT pO2 VBG pH VBG pCO2 VBG HCO3 VBG Total CO2 VBG O2 Sat (Calc) VBG Base Excess VBG Potassium Glucose Lactate FiO2 Sodium Potassium Chloride Carbon Dioxide Anion Gap BUN Creatinine Est GFR ( Amer) Est GFR (Non-Af Amer) POC Glucose (mg/dL) 309 H 292 H Random Glucose Calcium Phosphorus Magnesium Iron TIBC % Saturation Total Bilirubin AST ALT Alkaline Phosphatase Lactate Dehydrogenase Total Creatine Kinase Troponin I Total Protein Albumin Globulin Albumin/Globulin Ratio Lipase Carcinoembryonic Ag CA 19-9 Antigen CA 125 Antigen Venous Blood Potassium Urine Color Yellow Urine Appearance Clear Urine pH 6.0 Ur Specific [place] 1.025 Urine Protein >=300 H Urine Glucose (UA) 250 H Urine Ketones Negative Urine Blood Small H Urine Nitrate Negative Urine Bilirubin Negative Urine Urobilinogen 1.0 H Ur Leukocyte Esterase Negative Urine RBC 5 - 10 H Urine WBC 2 - 5 Ur Epithelial Cells 0 - 2 Urine Bacteria Mod Blood Type Blood Type Confirm Antibody Screen BBK History Checked 05/18/18 05/18/18 05/19/18 21:50 22:13 03:12 WBC RBC Hgb Hct MCV MCH MCHC RDW Plt Count MPV Gran % Lymph % (Auto) [place] % (Auto) Eos % (Auto) Baso % (Auto) Gran # Lymph # (Auto) [place] # (Auto) Eos # (Auto) Baso # (Auto) Differential Comment PT INR APTT pO2 115 H VBG pH 7.38 VBG pCO2 39.0 L VBG HCO3 23.1 VBG Total CO2 24.3 VBG O2 Sat (Calc) 98.6 H VBG Base Excess -1.8 L VBG Potassium 4.0 Glucose 266 H Lactate 1.1 FiO2 21.0 Sodium 131.0 L Potassium Chloride 101.0 Carbon Dioxide Anion Gap BUN Creatinine Est GFR ( Amer) Est GFR (Non-Af Amer) POC Glucose (mg/dL) 256 H 255 H Random Glucose Calcium Phosphorus Magnesium Iron TIBC % Saturation Total Bilirubin AST ALT Alkaline Phosphatase Lactate Dehydrogenase Total Creatine Kinase Troponin I Total Protein Albumin Globulin Albumin/Globulin Ratio Lipase Carcinoembryonic Ag CA 19-9 Antigen CA 125 Antigen Venous Blood Potassium 4.0 Urine Color Urine Appearance Urine pH Ur Specific [place] Urine Protein Urine Glucose (UA) Urine Ketones Urine Blood Urine Nitrate Urine Bilirubin Urine Urobilinogen Ur Leukocyte Esterase Urine RBC Urine WBC Ur Epithelial Cells Urine Bacteria Blood Type Blood Type Confirm Antibody Screen BBK History Checked 05/19/18 05/19/18 05/19/18 04:25 04:25 04:25 WBC 15.8 H RBC 3.56 Hgb 9.3 L Hct 28.1 L MCV 78.9 L MCH 26.1 MCHC 33.1 RDW 13.8 Plt Count 489 H MPV 9.9 Gran % 82.7 H Lymph % (Auto) 6.1 L [place] % (Auto) 11.0 H Eos % (Auto) 0.1 L Baso % (Auto) 0.1 Gran # 13.11 H Lymph # (Auto) 1.0 L [place] # (Auto) 1.7 H Eos # (Auto) 0.0 Baso # (Auto) 0.02 Differential Comment See pathology report PT INR APTT pO2 VBG pH VBG pCO2 VBG HCO3 VBG Total CO2 VBG O2 Sat (Calc) VBG Base Excess VBG Potassium Glucose Lactate FiO2 Sodium 133 Potassium 4.4 Chloride 101 Carbon Dioxide 24 Anion Gap 12 BUN 29 H Creatinine 1.4 Est GFR ( Amer) > 60 Est GFR (Non-Af Amer) 51 POC Glucose (mg/dL) Random Glucose 243 H Calcium 8.5 Phosphorus 3.8 Magnesium 1.9 Iron 12 L TIBC 198 L % Saturation 6 L Total Bilirubin 0.4 AST 46 ALT 44 Alkaline Phosphatase 986 H D Lactate Dehydrogenase Total Creatine Kinase Troponin I Total Protein 6.4 Albumin 2.8 L Globulin 3.5 Albumin/Globulin Ratio 0.8 L Lipase Carcinoembryonic Ag CA 19-9 Antigen CA 125 Antigen Venous Blood Potassium Urine Color Urine Appearance Urine pH Ur Specific [place] Urine Protein Urine Glucose (UA) Urine Ketones Urine Blood Urine Nitrate Urine Bilirubin Urine Urobilinogen Ur Leukocyte Esterase Urine RBC Urine WBC Ur Epithelial Cells Urine Bacteria Blood Type Blood Type Confirm Antibody Screen BBK History Checked 05/19/18 05/19/18 07:46 11:37 WBC RBC Hgb Hct MCV MCH MCHC RDW Plt Count MPV Gran % Lymph % (Auto) [place] % (Auto) Eos % (Auto) Baso % (Auto) Gran # Lymph # (Auto) [place] # (Auto) Eos # (Auto) Baso # (Auto) Differential Comment PT INR APTT pO2 VBG pH VBG pCO2 VBG HCO3 VBG Total CO2 VBG O2 Sat (Calc) VBG Base Excess VBG Potassium Glucose Lactate FiO2 Sodium Potassium Chloride Carbon Dioxide Anion Gap BUN Creatinine Est GFR ( Amer) Est GFR (Non-Af Amer) POC Glucose (mg/dL) 97 148 H Random Glucose Calcium Phosphorus Magnesium Iron TIBC % Saturation Total Bilirubin AST ALT Alkaline Phosphatase Lactate Dehydrogenase Total Creatine Kinase Troponin I Total Protein Albumin Globulin Albumin/Globulin Ratio Lipase Carcinoembryonic Ag CA 19-9 Antigen CA 125 Antigen Venous Blood Potassium Urine Color Urine Appearance Urine pH Ur Specific [place] Urine Protein Urine Glucose (UA) Urine Ketones Urine Blood Urine Nitrate Urine Bilirubin Urine Urobilinogen Ur Leukocyte Esterase Urine RBC Urine WBC Ur Epithelial Cells Urine Bacteria Blood Type Blood Type Confirm Antibody Screen BBK History Checked <Gayle,Kovil V - Last Filed: 05/19/18 21:16> Meds - Medications Medications: Current Medications Acetaminophen (Tylenol 325mg Tab) 650 mg PO Q6H PRN PRN Reason: Fever >100.4 F Last Admin: 05/19/18 16:48 Dose: 650 mg Atorvastatin Calcium (Lipitor) 40 mg PO HS EMMA Heparin Sodium (Porcine) (Heparin) 5,000 units SC Q8H [facility]; Protocol Last Admin: 05/19/18 17:26 Dose: 5,000 units Sodium Chloride (Sodium Chloride 0.9%) 1,000 mls @ 100 mls/hr IV .Q10H [facility] Last Admin: 05/19/18 16:49 Dose: 100 mls/hr Insulin Human Regular (Humulin R Med) 0 units SC ACHS [facility]; Protocol Last Admin: 05/19/18 16:16 Dose: Not Given Pantoprazole Sodium (Protonix Inj) 40 mg IVP DAILY [facility] Last Admin: 05/19/18 09:06 Dose: 40 mg Polyethylene Glycol (Miralax) 17 gm PO QID [facility]MA Stop: 05/20/18 06:00 Last Admin: 05/19/18 17:10 Dose: Not Given Results - Vital Signs Recent Vital Signs: Last Vital Signs Temp 98.8 F 05/19/18 17:48 Pulse 79 05/19/18 18:00 Resp 20 05/19/18 08:24 BP 137/72 05/19/18 08:24 Pulse Ox 97 05/19/18 08:24 - Labs Result Diagrams: 05/19/18 04:25 05/19/18 04:25 Labs: Laboratory Results - last 24 hr 05/18/18 05/18/18 05/18/18 17:58 18:00 18:00 WBC RBC Hgb Hct MCV MCH MCHC RDW Plt Count MPV Gran % Lymph % (Auto) [place] % (Auto) Eos % (Auto) Baso % (Auto) Gran # Lymph # (Auto) [place] # (Auto) Eos # (Auto) Baso # (Auto) Differential Comment pO2 VBG pH VBG pCO2 VBG HCO3 VBG Total CO2 VBG O2 Sat (Calc) VBG Base Excess VBG Potassium Sodium Chloride Glucose Lactate FiO2 Potassium Carbon Dioxide Anion Gap BUN Creatinine Est GFR ( Amer) Est GFR (Non-Af Amer) POC Glucose (mg/dL) Random Glucose Calcium Phosphorus Magnesium Iron TIBC % Saturation Ferritin Total Bilirubin AST ALT Alkaline Phosphatase Lactate Dehydrogenase 1657 H Total Creatine Kinase 114 Troponin I < 0.01 Total Protein Albumin Globulin Albumin/Globulin Ratio Carcinoembryonic Ag 82989.0 H CA 19-9 Antigen 864 H CA 125 Antigen 1220 H Vitamin B12 Folate Venous Blood Potassium 05/18/18 05/18/18 05/19/18 21:50 22:13 03:12 WBC RBC Hgb Hct MCV MCH MCHC RDW Plt Count MPV Gran % Lymph % (Auto) [place] % (Auto) Eos % (Auto) Baso % (Auto) Gran # Lymph # (Auto) [place] # (Auto) Eos # (Auto) Baso # (Auto) Differential Comment pO2 115 H VBG pH 7.38 VBG pCO2 39.0 L VBG HCO3 23.1 VBG Total CO2 24.3 VBG O2 Sat (Calc) 98.6 H VBG Base Excess -1.8 L VBG Potassium 4.0 Sodium 131.0 L Chloride 101.0 Glucose 266 H Lactate 1.1 FiO2 21.0 Potassium Carbon Dioxide Anion Gap BUN Creatinine Est GFR ( Amer) Est GFR (Non-Af Amer) POC Glucose (mg/dL) 256 H 255 H Random Glucose Calcium Phosphorus Magnesium Iron TIBC % Saturation Ferritin Total Bilirubin AST ALT Alkaline Phosphatase Lactate Dehydrogenase Total Creatine Kinase Troponin I Total Protein Albumin Globulin Albumin/Globulin Ratio Carcinoembryonic Ag CA 19-9 Antigen CA 125 Antigen Vitamin B12 Folate Venous Blood Potassium 4.0 05/19/18 05/19/18 05/19/18 04:25 04:25 04:25 WBC 15.8 H RBC 3.56 Hgb 9.3 L Hct 28.1 L MCV 78.9 L MCH 26.1 MCHC 33.1 RDW 13.8 Plt Count 489 H MPV 9.9 Gran % 82.7 H Lymph % (Auto) 6.1 L [place] % (Auto) 11.0 H Eos % (Auto) 0.1 L Baso % (Auto) 0.1 Gran # 13.11 H Lymph # (Auto) 1.0 L [place] # (Auto) 1.7 H Eos # (Auto) 0.0 Baso # (Auto) 0.02 Differential Comment See pathology report pO2 VBG pH VBG pCO2 VBG HCO3 VBG Total CO2 VBG O2 Sat (Calc) VBG Base Excess VBG Potassium Sodium 133 Chloride 101 Glucose Lactate FiO2 Potassium 4.4 Carbon Dioxide 24 Anion Gap 12 BUN 29 H Creatinine 1.4 Est GFR ( Amer) > 60 Est GFR (Non-Af Amer) 51 POC Glucose (mg/dL) Random Glucose 243 H Calcium 8.5 Phosphorus 3.8 Magnesium 1.9 Iron 12 L TIBC 198 L % Saturation 6 L Ferritin 140.0 Total Bilirubin 0.4 AST 46 ALT 44 Alkaline Phosphatase 986 H D Lactate Dehydrogenase Total Creatine Kinase Troponin I Total Protein 6.4 Albumin 2.8 L Globulin 3.5 Albumin/Globulin Ratio 0.8 L Carcinoembryonic Ag CA 19-9 Antigen CA 125 Antigen Vitamin B12 > 1000 H Folate 16.4 Venous Blood Potassium 05/19/18 05/19/18 05/19/18 07:46 11:37 16:12 WBC RBC Hgb Hct MCV MCH MCHC RDW Plt Count MPV Gran % Lymph % (Auto) [place] % (Auto) Eos % (Auto) Baso % (Auto) Gran # Lymph # (Auto) [place] # (Auto) Eos # (Auto) Baso # (Auto) Differential Comment pO2 VBG pH VBG pCO2 VBG HCO3 VBG Total CO2 VBG O2 Sat (Calc) VBG Base Excess VBG Potassium Sodium Chloride Glucose Lactate FiO2 Potassium Carbon Dioxide Anion Gap BUN Creatinine Est GFR ( Amer) Est GFR (Non-Af Amer) POC Glucose (mg/dL) 97 148 H 124 H Random Glucose Calcium Phosphorus Magnesium Iron TIBC % Saturation Ferritin Total Bilirubin AST ALT Alkaline Phosphatase Lactate Dehydrogenase Total Creatine Kinase Troponin I Total Protein Albumin Globulin Albumin/Globulin Ratio Carcinoembryonic Ag CA 19-9 Antigen CA 125 Antigen Vitamin B12 Folate Venous Blood Potassium Attending/Attestation - Attestation I have personally seen and examined this patient.: Yes I have fully participated in the care of the patient.: Yes I have reviewed all pertinent clinical information: Yes Notes (Text): This is an addendum to GI consult report dictated by the GI Fellow. The patient was seen and examined earlier. Medical records, lab studies, imagings were reviewed. Last 24 hours events reviewed. Agreed with the above treatment plan as outlined in GI Fellow 's notes with the addition of the following this 62-year-old patient admitted was admitted with the weight loss dysphagia change of bowel habits. He was found to have multiple liver lesions lung lesions and also thickening of the distal esophagus on CT. Patient was also found to hae ileoileal intussusceptive changes. By mouth contrast CAT scan showed a contrast in the colon. Patient has been moving his bowels There is large amount of stool present in the colon. would recommend 1 clear liquid diet explained to. 2.EGD in the a.m. to evaluate the distal esophageal thickening rule out malignancy 3 Dr Jaydon Cleaning has been consulted for possible liver biopsy 05/19/18 21:09
[2018-05-19] MEDS: POLYETHYLENE GLYCOL 3350 17 GM/Dose PACKET PO SCH ×3 (14:24→21:15)
[2018-05-19 20:18] LABS: FOLATE 16.4 ng/mL
[2018-05-19] MEDS ORDERED: Insulin Detemir 100 units/ml Vial (Levemir) SC SCH (22:00)
--- NOTE | 2018-05-20 00:14 | CON ---
DATE: 05/19/2018 This is Dom Abad's consult on the medical floor. For Dr. Watkins. CHIEF COMPLAINT: Weight loss. HISTORY OF PRESENT ILLNESS: The patient is a 62-year-old male admitted via the emergency room for evaluation of dysphagia with weight loss with the patient reporting constipation, 20-pound weight loss over the past month or so with 2 to 3 weeks of loss of appetite and difficulty swallowing. With this the patient is otherwise denying pain and has had testing done to include a CT scan of the chest, abdomen and pelvis yesterday with findings to include intussusception of the small bowel and extensive retroperitoneal adenopathy with multiple metastatic lesions in the liver with scattered small pulmonary nodules. For this, Dr. Watkins was asked to consult for oncological evaluation. The patient is otherwise at this time without complaint and in no acute distress and n.p.o. It should be noted that his tumor markers have been returned with a CA19-9 of 864, CEA of 25,300 and a CA125 of 1220. PAST MEDICAL HISTORY: Significant for diabetes mellitus, GERD, hypertension, chronic pancreatitis, status post hernia repair, neuropathy, community-acquired pneumonia in 2016, COPD, tobacco abuse, anxiety, and rotator cuff repair on the left. ALLERGIES: NO KNOWN ALLERGIES. MEDICATIONS: Include glipizide, atorvastatin, insulin, Protonix, and lisinopril. FAMILY HISTORY AND SOCIAL HISTORY: An 80-pack year smoking history, currently smokes half a pack a day, trying to quit. Denies current use, admit to heavy drinking in the past. Quit approximately 20 years prior. Mother of lung cancer and history of breast cancer. Father of myocardial infarction. The patient reports he is retired now, was a worker at [employer] on the [facility] in [place], [place]. REVIEW OF SYSTEMS: Twelve-point review of systems was done, which is negative to questioning except for items mentioned in the history of present illness.. PHYSICAL EXAMINATION VITAL SIGNS: VITAL SIGNS: Temperature 98.8, pulse 79, respirations 20, blood pressure 132/72 with a pulse ox of 97%. HEENT: Unremarkable. NECK: Supple. HEART: Regular rate. LUNGS: Clear. ABDOMEN: Soft, nontender. EXTREMITIES: No edema. SKIN: Warm and dry. NEUROLOGIC: Awake, alert, and oriented x3. LABORATORY DATA: The patient's labs were done. White blood cell count of 15.8, hemoglobin 9.3, hematocrit of 28.1, platelet count of 489,000, down from 716,000 yesterday. His metabolic panel is within normal limits today. On admission, he had a potassium of 5.9 with a nonfasting glucose of 380 with LDH of 1657, alk phos of 1377, AST of 65. CEA value 25,300. CA19-9 of 864. CA125 of 1220. His blood sugars have been monitored with most recent sugar noted to be 124, vitamin B12 greater than 1000, folate 16.4. His liver function test returning to normal. Iron percent saturation is 6%. INR is 1.03. Urine showed greater than 300 mg/dL of protein, 250 mg of glucose, small amount of blood. The patient had a CT scan of the abdomen and pelvis. The impression was partial reduction of intussusception likely no bowel obstruction, oral contrast opacifying small and right-sided large bowel segments, multifocal metastasis identified at the lung bases and liver as well as retroperitoneum once again consider this is an etiology of intussusception as well. Though, no definite small bowel mass is clearly identified at this time. Mild anasarca, cachexia. The patient had a slide review smear peripheral blood showing microcytic hyperchromic despite poikilocytosis, no schistocytes, platelets increased to of the platelets. No mature cells identified on peripheral smear. EKG done yesterday was read as normal sinus rhythm, normal EKG. Chest x-ray was done yesterday was read as no active pulmonary disease, stable asymmetric enlargement of the right hilum. ASSESSMENT: The assessment on this patient is that of failure to thrive, unexplained weight loss, with multiple liver lung metastasis? intussusception, rule out malignancy, tobacco abuse, history of ethanol abuse, constipation, dysphagia, diabetes mellitus, hyperlipidemia, hypertension, and thrombocythemia. PLAN: Plan for this patient is to obtain a tissue diagnosis possible by liver biopsy with continuation of present medical regimen including surgical consult, gastrointestinal consult. The prognosis for this patient is guarded. Further workup as per results of testing. This is a complex patient with comprehensive medically necessary appropriate visit carried out in excess of 70 with patient's questions answered to his satisfaction. Ezequiel Singh MD
[2018-05-20 06:46] LABS: BASO # 0.01 K/mm3 (0.0-2.0); BASO % 0.1 % (0.0-3.0); EOS % 0.2 % (1.5-5.0); GRAN # 11.64 (1.4-6.5); GRAN % 82.7 % (50.0-68.0); HEMOGLOBIN 9.3 g/dL (14.0-18.0); LYMPH # 0.9 (1.2-3.4); LYMPH % 6.3 % (22.0-35.0); MEAN CELL VOLUME 79.6 fl (80.0-105.0); MEAN CORPUSCULAR HEMOGLOBIN 25.3 pg (25.0-35.0); MEAN CORPUSCULAR HGB CONC 31.8 g/dl (31.0-37.0); MEAN PLATELET VOLUME 10.5 fl (7.0-11.0); MONO # 1.5 (0.1-0.6); MONO % 10.7 % (1.0-6.0); RBC 3.67 10^6/uL (3.5-6.1); WHITE BLOOD COUNT 14.1 10^3/uL (4.5-11.0)
[2018-05-20 07:04] LABS: ALB/GLOB RATIO 0.8 (1.1-1.8); ALBUMIN 2.6 g/dL (3.0-4.8); ALT/SGPT 40 U/L (7-56); AST/SGOT 54 U/L (17-59); BLOOD UREA NITROGEN 24 mg/dL (7-21); CALCIUM 8.4 mg/dL (8.4-10.5); GFR NON-AFRICAN AMERICAN 51
--- NOTE | 2018-05-20 07:45 | CP.PCM.PN ---
Subjective - Date & Time of Evaluation Date of Evaluation: 05/20/18 Time of Evaluation: 06:40 - Subjective Subjective: PGY-1 Laure Peter D.O. Surgery progress note for Dr. Salazar: Patient was seen and examined this morning. He states his abdominal pain has resolved. He denies nausea and vomiting. He is urinating and having regular BMs. He is NPO for EGD today. Objective - Vital Signs/Intake and Output Vital Signs (last 24 hours): Temp Pulse Resp BP Pulse Ox 98.2 F 80 20 151/81 H 96 05/20/18 06:00 05/20/18 06:00 05/20/18 06:00 05/20/18 06:00 05/20/18 06:00 Intake and Output: 05/20/18 05/20/18 06:59 18:59 Intake Total 1200 Balance 1200 - Medications Medications: Current Medications Acetaminophen (Tylenol 325mg Tab) 650 mg PO Q6H PRN PRN Reason: Fever >100.4 F Last Admin: 05/19/18 16:48 Dose: 650 mg Atorvastatin Calcium (Lipitor) 40 mg PO HS EMMA Last Admin: 05/19/18 21:16 Dose: 40 mg Heparin Sodium (Porcine) (Heparin) 5,000 units SC Q8H EMMA; Protocol Last Admin: 05/19/18 17:26 Dose: 5,000 units Sodium Chloride (Sodium Chloride 0.9%) 1,000 mls @ 100 mls/hr IV .Q10H EMMA Last Admin: 05/19/18 16:49 Dose: 100 mls/hr Insulin Human Regular (Humulin R Med) 0 units SC ACHS EMMA; Protocol Last Admin: 05/19/18 21:16 Dose: Not Given Pantoprazole Sodium (Protonix Inj) 40 mg IVP DAILY EMMA Last Admin: 05/19/18 09:06 Dose: 40 mg - Labs Labs: 05/20/18 06:00 05/20/18 06:00 PT 11.7 SECONDS (9.4-12.5) 05/18/18 17:58 INR 1.03 05/18/18 17:58 APTT 33.0 Seconds (25.1-36.5) 05/18/18 17:58 - Constitutional Appears: Non-toxic, No Acute Distress - Head Exam Head Exam: ATRAUMATIC, NORMAL INSPECTION - Eye Exam Eye Exam: EOMI, Normal appearance - ENT Exam ENT Exam: Mucous Membranes Moist - Neck Exam Neck Exam: Normal Inspection - Respiratory Exam Respiratory Exam: NORMAL BREATHING PATTERN. absent: Accessory Muscle Use, Respiratory Distress - Cardiovascular Exam Cardiovascular Exam: RRR - GI/Abdominal Exam GI & Abdominal Exam: Soft. absent: Distended, Tenderness - Extremities Exam Extremities Exam: Normal Inspection - Neurological Exam Neurological Exam: Alert, Awake, Oriented x3 - Psychiatric Exam Psychiatric exam: Normal Affect, Normal Mood - Skin Skin Exam: Dry, Normal Color, Warm Assessment and Plan - Assessment and Plan (Free Text) Assessment: 62M with diffuse metastatic disease, unknown primary but diffuse nodular thickening noted at the distal esophagus and GE junction and lung nodules on CT, admitted for incidental finding of intussusception in RUQ on CT. - CEA: 25,300 - CA 19-9: 864 - CA 125: 1220 Plan: - Serial abdominal exams- if patient develops signs of acute obstruction/acute abdomen will proceed to OR - Encourage smoking cessation - Hem/onc recs tissue sample (liver Bx) - NPO for EGD then CLD (pt tolerating) - f/u EGD - f/u IR for liver Bx Further recs as per attending, Dr. Salazar.
[2018-05-20] MEDS: Insulin Reg-MEDIUM-Coverage SC SCH ×4 (07:56→21:54)
[2018-05-20] MEDS ORDERED: Sodium Chloride 0.9% 1,000 ML IV SCH (10:30)
[2018-05-20] MEDS: Sodium Chloride 0.9% 1,000 ML IV SCH (12:33)
--- NOTE | 2018-05-20 12:56 | CP.PCM.PN ---
<Beata Solo - Last Filed: 05/20/18 13:05> Subjective - Date & Time of Evaluation Date of Evaluation: 05/20/18 Time of Evaluation: 10:20 - Subjective Subjective: Beata Solo Y1 [facility] Progress Note Patient seen and examined at bedside this morning. No acute events reported overnight. Plan for EGD and liver biopsy today. Offers no new complaints today. Objective - Vital Signs/Intake and Output Vital Signs (last 24 hours): Temp Pulse Resp BP Pulse Ox 98.2 F 85 20 143/80 96 05/20/18 06:00 05/20/18 10:48 05/20/18 06:00 05/20/18 10:48 05/20/18 06:00 Intake and Output: 05/20/18 05/20/18 06:59 18:59 Intake Total 1200 Balance 1200 - Medications Medications: Current Medications Acetaminophen (Tylenol 325mg Tab) 650 mg PO Q6H PRN PRN Reason: Fever >100.4 F Last Admin: 05/19/18 16:48 Dose: 650 mg Atorvastatin Calcium (Lipitor) 40 mg PO HS EMMA Last Admin: 05/19/18 21:16 Dose: 40 mg Heparin Sodium (Porcine) (Heparin) 5,000 units SC Q8H EMMA; Protocol Last Admin: 05/19/18 17:26 Dose: 5,000 units Sodium Chloride (Sodium Chloride 0.9%) 1,000 mls @ 100 mls/hr IV .Q10H EMMA Last Admin: 05/20/18 12:33 Dose: 100 mls/hr Sodium Chloride (Sodium Chloride 0.9%) 1,000 mls @ 75 mls/hr IV .[id number] EMMA Stop: 05/20/18 20:31 Insulin Human Regular (Humulin R Med) 0 units SC ACHS EMMA; Protocol Last Admin: 05/20/18 12:33 Dose: Not Given Pantoprazole Sodium (Protonix Inj) 40 mg IVP DAILY EMMA Last Admin: 05/20/18 09:38 Dose: 40 mg - Labs Labs: 05/20/18 06:00 05/20/18 06:00 PT 11.7 SECONDS (9.4-12.5) 05/18/18 17:58 INR 1.03 05/18/18 17:58 APTT 33.0 Seconds (25.1-36.5) 05/18/18 17:58 - Additional Findings Additional findings: - Constitutional Appears: Well, Non-toxic, No Acute Distress, Chronically Ill - Head Exam Head Exam: ATRAUMATIC, NORMOCEPHALIC - Eye Exam Eye Exam: EOMI, Normal appearance, PERRL. absent: Scleral icterus - ENT Exam ENT Exam: Mucous Membranes Moist Additional comments: poor dentition - Respiratory Exam Respiratory Exam: Clear to Auscultation Bilateral, NORMAL BREATHING PATTERN. absent: Rales, Rhonchi, Wheezes - Cardiovascular Exam Cardiovascular Exam: regular rhythm, +S1, +S2. - GI/Abdominal Exam GI & Abdominal Exam: Soft. absent: Tenderness Additional comments: Mild hepatomegaly - Extremities Exam Extremities exam: pedal pulses present, no calf tenderness appreciated - Neurological Exam Neurological exam: Alert, CN II-XII Intact, Oriented x3 - Skin Skin Exam: Dry, Intact, Warm Assessment and Plan - Assessment and Plan (Free Text) Assessment: 62M w/ a PMH of DM, HLD, GERD, HTN, Chronic Pancreatitis, who presented to [facility] on 05/19; Patient complained of dysphagia and B-type symptoms on evaluation; found to have significant heterogenicity on CTAP of liver highly suspicious for metastatic disease, and Intussusception Plan: Concern for malignancy -CTAP showed liver is enlarged with innumerable masses seen scattered throughout the liver consistent with metastatic disease, chronic pancreatitis, enteroenteric intussusception in the right upper quadrant, perihepatic ascites, extensive retroperitoneal and mesenteric lymphadenopathy noted, diffuse nodular thickening noted at the distal esophagus and GE junction, numerous bilateral l milena nodules measuring consistent with metastatic process -EGD today -liver biopsy today -Heme/onc on consult -IR on consult -GI on consult -Gen surg on consult -CEA, CA 125, CA 19-9 elevated Hyperkalemia -resolved -will monitor Hx DM -insulin ACHS [place] -Cr 1.4 from 1.4 -likely has CKD stage 3 -NS 100 Anemia -ormocytic -iron low, %sat low, ferritin WNL Thrombocytosis -Most likely reactive vs Dehydration -downtrending today, will monitor PPX: -Protonix, Heparin 5K Q8 Patient seen and case discussed with attending, Dr. Burton <aKryn Burton - Last Filed: 05/22/18 12:28> Objective - Vital Signs/Intake and Output Vital Signs (last 24 hours): Temp Pulse Resp BP Pulse Ox 98.3 F 86 20 141/72 99 05/21/18 09:00 05/21/18 09:00 05/21/18 09:00 05/21/18 09:00 05/21/18 09:00 - Labs Labs: 05/21/18 05:30 05/21/18 05:30 PT 11.7 SECONDS (9.4-12.5) 05/18/18 17:58 INR 1.03 05/18/18 17:58 APTT 33.0 Seconds (25.1-36.5) 05/18/18 17:58 Attending/Attestation - Attestation I have personally seen and examined this patient.: Yes I have fully participated in the care of the patient.: Yes I have reviewed all pertinent clinical information, including history, physical exam and plan: Yes Notes (Text): 05/22/18 12:27 Medical record note made by the resident after discussion with my direction and input after the patient was personally seen and examined by me. I have reviewed the chart and agree that the record accurately reflects by personal performance of the history, physical exam, data review, and medical decision-making, in the course for the patient. I have also personally directed the plan of care
[2018-05-20] MEDS ORDERED: Midazolam 2 MG/2 ML VIAL ONE (13:25)
[2018-05-20] MEDS ORDERED: Succinylcholine 200 mg/10 ml Inj IV ONE (13:25)
[2018-05-20] MEDS ORDERED: Propofol 10 mg/ml Inj (20 ML) ONE (13:25)
--- NOTE | 2018-05-20 14:24 | CP.PCM.APN ---
Subjective - Date & Time of Evaluation Date of Evaluation: 05/20/18 Time of Evaluation: 11:00 - Subjective Subjective: pt. seen and examined in bed, noted to be sitting up. Denied abdominal pain, nausea, vomiting. Has been NPO since midnight for EGD today. Review of Systems - Constitutional Constitutional: As Per HPI - EENT Eyes: As Per HPI Ears: As Per HPI Nose/Mouth/Throat: As Per HPI - Cardiovascular Cardiovascular: As Per HPI - Respiratory Respiratory: As Per HPI - Gastrointestinal Gastrointestinal: As Per HPI - Genitourinary Genitourinary: As Per HPI - Reproductive: Male Reproductive:Male: As Per HPI - Musculoskeletal Musculoskeletal: As Per HPI - Integumentary Integumentary: As Per HPI - Neurological Neurological: As Per HPI - Psychiatric Psychiatric: As Per HPI - Endocrine Endocrine: As Per HPI - Hematologic/Lymphatic Hematologic: As Per HPI Objective - Vital Signs/Intake and Output Vital Signs (last 24 hours): Temp Pulse Resp BP Pulse Ox 98.4 F 68 12 100/56 L 97 05/20/18 14:12 05/20/18 14:12 05/20/18 14:12 05/20/18 14:12 05/20/18 14:12 Intake and Output: 05/20/18 05/20/18 06:59 18:59 Intake Total 1200 Balance 1200 - Medications Medications: Current Medications Acetaminophen (Tylenol 325mg Tab) 650 mg PO Q6H PRN PRN Reason: Fever >100.4 F Last Admin: 05/19/18 16:48 Dose: 650 mg Atorvastatin Calcium (Lipitor) 40 mg PO HS EMMA Last Admin: 05/19/18 21:16 Dose: 40 mg Heparin Sodium (Porcine) (Heparin) 5,000 units SC Q8H EMMA; Protocol Last Admin: 05/19/18 17:26 Dose: 5,000 units Sodium Chloride (Sodium Chloride 0.9%) 1,000 mls @ 100 mls/hr IV .Q10H EMMA Last Admin: 05/20/18 12:33 Dose: 100 mls/hr Sodium Chloride (Sodium Chloride 0.9%) 1,000 mls @ 75 mls/hr IV .[id number] EMMA Stop: 05/20/18 20:31 Insulin Human Regular (Humulin R Med) 0 units SC ACHS [facility]; Protocol Last Admin: 05/20/18 12:33 Dose: Not Given Pantoprazole Sodium (Protonix Inj) 40 mg IVP DAILY EMMA Last Admin: 05/20/18 09:38 Dose: 40 mg - Labs Labs: 05/20/18 06:00 05/20/18 06:00 PT 11.7 SECONDS (9.4-12.5) 05/18/18 17:58 INR 1.03 05/18/18 17:58 APTT 33.0 Seconds (25.1-36.5) 05/18/18 17:58 - Constitutional Appears: Well, Non-toxic - Head Exam Head Exam: NORMAL INSPECTION - Eye Exam Eye Exam: Normal appearance - ENT Exam ENT Exam: Mucous Membranes Moist, Normal Exam - Neck Exam Neck Exam: Full ROM - Respiratory Exam Respiratory Exam: Clear to Ausculation Bilateral - Cardiovascular Exam Cardiovascular Exam: REGULAR RHYTHM, +S1, +S2 - GI/Abdominal Exam GI & Abdominal Exam: Soft, Normal Bowel Sounds - Rectal Exam Rectal Exam: Deferred - Extremities Exam Extremities Exam: Full ROM - Neurological Exam Neurological Exam: Alert, Awake, Oriented x3 - Psychiatric Exam Psychiatric exam: Depressed - Skin Skin Exam: Normal Color, Warm Assessment and Plan - Assessment and Plan (Free Text) Assessment: Abnormal Lab Results 05/19/18 05/19/18 05/19/18 04:25 16:12 21:01 WBC RBC Hgb Hct MCV MCH MCHC RDW Plt Count MPV Gran % Lymph % (Auto) [place] % (Auto) Eos % (Auto) Baso % (Auto) Gran # Lymph # (Auto) [place] # (Auto) Eos # (Auto) Baso # (Auto) Sodium Potassium Chloride Carbon Dioxide Anion Gap BUN Creatinine Est GFR ( Amer) Est GFR (Non-Af Amer) POC Glucose (mg/dL) 124 H 168 H Random Glucose Calcium Ferritin 140.0 Total Bilirubin AST ALT Alkaline Phosphatase Total Protein Albumin Globulin Albumin/Globulin Ratio Vitamin B12 > 1000 H Folate 16.4 05/20/18 05/20/18 05/20/18 06:00 06:00 07:21 WBC 14.1 H RBC 3.67 Hgb 9.3 L Hct 29.2 L MCV 79.6 L MCH 25.3 MCHC 31.8 RDW 14.0 Plt Count 535 H MPV 10.5 Gran % 82.7 H Lymph % (Auto) 6.3 L [place] % (Auto) 10.7 H Eos % (Auto) 0.2 L Baso % (Auto) 0.1 Gran # 11.64 H Lymph # (Auto) 0.9 L [place] # (Auto) 1.5 H Eos # (Auto) 0.0 Baso # (Auto) 0.01 Sodium 135 Potassium 4.7 Chloride 105 Carbon Dioxide 24 Anion Gap 11 BUN 24 H Creatinine 1.4 Est GFR ( Amer) > 60 Est GFR (Non-Af Amer) 51 POC Glucose (mg/dL) 187 H Random Glucose 176 H Calcium 8.4 Ferritin Total Bilirubin 0.4 AST 54 ALT 40 Alkaline Phosphatase 893 H Total Protein 6.0 Albumin 2.6 L Globulin 3.4 Albumin/Globulin Ratio 0.8 L Vitamin B12 Folate 05/20/18 11:24 WBC RBC Hgb Hct MCV MCH MCHC RDW Plt Count MPV Gran % Lymph % (Auto) [place] % (Auto) Eos % (Auto) Baso % (Auto) Gran # Lymph # (Auto) [place] # (Auto) Eos # (Auto) Baso # (Auto) Sodium Potassium Chloride Carbon Dioxide Anion Gap BUN Creatinine Est GFR ( Amer) Est GFR (Non-Af Amer) POC Glucose (mg/dL) 198 H Random Glucose Calcium Ferritin Total Bilirubin AST ALT Alkaline Phosphatase Total Protein Albumin Globulin Albumin/Globulin Ratio Vitamin B12 Folate Laboratory Tests 05/18/18 05/18/18 05/18/18 17:45 17:58 17:58 WBC RBC Hgb Hct MCV MCH MCHC RDW Plt Count MPV Gran % Lymph % (Auto) [place] % (Auto) Eos % (Auto) Baso % (Auto) Gran # Lymph # (Auto) [place] # (Auto) Eos # (Auto) Baso # (Auto) Differential Comment PT 11.7 INR 1.03 APTT 33.0 pO2 VBG pH VBG pCO2 VBG HCO3 VBG Total CO2 VBG O2 Sat (Calc) VBG Base Excess VBG Potassium Glucose Lactate FiO2 Sodium 133 Potassium 5.9 H* D Chloride 100 Carbon Dioxide 27 Anion Gap 13 BUN 33 H Creatinine 1.4 Est GFR ( Amer) > 60 Est GFR (Non-Af Amer) 51 POC Glucose (mg/dL) Random Glucose 380 H* D Calcium 9.3 Phosphorus Magnesium Iron TIBC % Saturation Ferritin Total Bilirubin 0.5 AST 65 H ALT 54 Alkaline Phosphatase 1377 H Lactate Dehydrogenase Total Creatine Kinase Troponin I Total Protein 7.8 Albumin 3.4 Globulin 4.4 Albumin/Globulin Ratio 0.8 L Lipase 73 Carcinoembryonic Ag CA 19-9 Antigen CA 125 Antigen Vitamin B12 Folate Venous Blood Potassium Urine Color Urine Appearance Urine pH Ur Specific [place] Urine Protein Urine Glucose (UA) Urine Ketones Urine Blood Urine Nitrate Urine Bilirubin Urine Urobilinogen Ur Leukocyte Esterase Urine RBC Urine WBC Ur Epithelial Cells Urine Bacteria Blood Type O POSITIVE Blood Type Confirm Antibody Screen Negative BBK History Checked No verified bt 05/18/18 05/18/18 05/18/18 17:58 17:58 18:00 WBC 18.9 H RBC 4.14 Hgb 10.9 L Hct 33.2 L MCV 80.2 MCH 26.3 MCHC 32.8 RDW 14.0 Plt Count 716 H* D MPV 10.3 Gran % 83.6 H Lymph % (Auto) 5.9 L [place] % (Auto) 10.3 H Eos % (Auto) 0.1 L Baso % (Auto) 0.1 Gran # 15.75 H Lymph # (Auto) 1.1 L [place] # (Auto) 2.0 H Eos # (Auto) 0.0 Baso # (Auto) 0.02 Differential Comment PT INR APTT pO2 VBG pH VBG pCO2 VBG HCO3 VBG Total CO2 VBG O2 Sat (Calc) VBG Base Excess VBG Potassium Glucose Lactate FiO2 Sodium Potassium Chloride Carbon Dioxide Anion Gap BUN Creatinine Est GFR ( Amer) Est GFR (Non-Af Amer) POC Glucose (mg/dL) Random Glucose Calcium Phosphorus Magnesium Iron TIBC % Saturation Ferritin Total Bilirubin AST ALT Alkaline Phosphatase Lactate Dehydrogenase 1657 H Total Creatine Kinase 114 Troponin I < 0.01 Total Protein Albumin Globulin Albumin/Globulin Ratio Lipase Carcinoembryonic Ag CA 19-9 Antigen 864 H CA 125 Antigen 1220 H Vitamin B12 Folate Venous Blood Potassium Urine Color Urine Appearance Urine pH Ur Specific [place] Urine Protein Urine Glucose (UA) Urine Ketones Urine Blood Urine Nitrate Urine Bilirubin Urine Urobilinogen Ur Leukocyte Esterase Urine RBC Urine WBC Ur Epithelial Cells Urine Bacteria Blood Type Blood Type Confirm Antibody Screen BBK History Checked 05/18/18 05/18/18 05/18/18 18:00 18:24 18:37 WBC RBC Hgb Hct MCV MCH MCHC RDW Plt Count MPV Gran % Lymph % (Auto) [place] % (Auto) Eos % (Auto) Baso % (Auto) Gran # Lymph # (Auto) [place] # (Auto) Eos # (Auto) Baso # (Auto) Differential Comment PT INR APTT pO2 VBG pH VBG pCO2 VBG HCO3 VBG Total CO2 VBG O2 Sat (Calc) VBG Base Excess VBG Potassium Glucose Lactate FiO2 Sodium Potassium Chloride Carbon Dioxide Anion Gap BUN Creatinine Est GFR ( Amer) Est GFR (Non-Af Amer) POC Glucose (mg/dL) 366 H Random Glucose Calcium Phosphorus Magnesium Iron TIBC % Saturation Ferritin Total Bilirubin AST ALT Alkaline Phosphatase Lactate Dehydrogenase Total Creatine Kinase Troponin I Total Protein Albumin Globulin Albumin/Globulin Ratio Lipase Carcinoembryonic Ag 12327.0 H CA 19-9 Antigen CA 125 Antigen Vitamin B12 Folate Venous Blood Potassium Urine Color Urine Appearance Urine pH Ur Specific [place] Urine Protein Urine Glucose (UA) Urine Ketones Urine Blood Urine Nitrate Urine Bilirubin Urine Urobilinogen Ur Leukocyte Esterase Urine RBC Urine WBC Ur Epithelial Cells Urine Bacteria Blood Type Blood Type Confirm O POSITIVE Antibody Screen BBK History Checked 05/18/18 05/18/18 05/18/18 19:00 19:21 20:25 WBC RBC Hgb Hct MCV MCH MCHC RDW Plt Count MPV Gran % Lymph % (Auto) [place] % (Auto) Eos % (Auto) Baso % (Auto) Gran # Lymph # (Auto) [place] # (Auto) Eos # (Auto) Baso # (Auto) Differential Comment PT INR APTT pO2 VBG pH VBG pCO2 VBG HCO3 VBG Total CO2 VBG O2 Sat (Calc) VBG Base Excess VBG Potassium Glucose Lactate FiO2 Sodium Potassium Chloride Carbon Dioxide Anion Gap BUN Creatinine Est GFR ( Amer) Est GFR (Non-Af Amer) POC Glucose (mg/dL) 309 H 292 H Random Glucose Calcium Phosphorus Magnesium Iron TIBC % Saturation Ferritin Total Bilirubin AST ALT Alkaline Phosphatase Lactate Dehydrogenase Total Creatine Kinase Troponin I Total Protein Albumin Globulin Albumin/Globulin Ratio Lipase Carcinoembryonic Ag CA 19-9 Antigen CA 125 Antigen Vitamin B12 Folate Venous Blood Potassium Urine Color Yellow Urine Appearance Clear Urine pH 6.0 Ur Specific [place] 1.025 Urine Protein >=300 H Urine Glucose (UA) 250 H Urine Ketones Negative Urine Blood Small H Urine Nitrate Negative Urine Bilirubin Negative Urine Urobilinogen 1.0 H Ur Leukocyte Esterase Negative Urine RBC 5 - 10 H Urine WBC 2 - 5 Ur Epithelial Cells 0 - 2 Urine Bacteria Mod Blood Type Blood Type Confirm Antibody Screen BBK History Checked 05/18/18 05/18/18 05/19/18 21:50 22:13 03:12 WBC RBC Hgb Hct MCV MCH MCHC RDW Plt Count MPV Gran % Lymph % (Auto) [place] % (Auto) Eos % (Auto) Baso % (Auto) Gran # Lymph # (Auto) [place] # (Auto) Eos # (Auto) Baso # (Auto) Differential Comment PT INR APTT pO2 115 H VBG pH 7.38 VBG pCO2 39.0 L VBG HCO3 23.1 VBG Total CO2 24.3 VBG O2 Sat (Calc) 98.6 H VBG Base Excess -1.8 L VBG Potassium 4.0 Glucose 266 H Lactate 1.1 FiO2 21.0 Sodium 131.0 L Potassium Chloride 101.0 Carbon Dioxide Anion Gap BUN Creatinine Est GFR ( Amer) Est GFR (Non-Af Amer) POC Glucose (mg/dL) 256 H 255 H Random Glucose Calcium Phosphorus Magnesium Iron TIBC % Saturation Ferritin Total Bilirubin AST ALT Alkaline Phosphatase Lactate Dehydrogenase Total Creatine Kinase Troponin I Total Protein Albumin Globulin Albumin/Globulin Ratio Lipase Carcinoembryonic Ag CA 19-9 Antigen CA 125 Antigen Vitamin B12 Folate Venous Blood Potassium 4.0 Urine Color Urine Appearance Urine pH Ur Specific [place] Urine Protein Urine Glucose (UA) Urine Ketones Urine Blood Urine Nitrate Urine Bilirubin Urine Urobilinogen Ur Leukocyte Esterase Urine RBC Urine WBC Ur Epithelial Cells Urine Bacteria Blood Type Blood Type Confirm Antibody Screen BBK History Checked 05/19/18 05/19/18 05/19/18 04:25 04:25 04:25 WBC 15.8 H RBC 3.56 Hgb 9.3 L Hct 28.1 L MCV 78.9 L MCH 26.1 MCHC 33.1 RDW 13.8 Plt Count 489 H MPV 9.9 Gran % 82.7 H Lymph % (Auto) 6.1 L [place] % (Auto) 11.0 H Eos % (Auto) 0.1 L Baso % (Auto) 0.1 Gran # 13.11 H Lymph # (Auto) 1.0 L [place] # (Auto) 1.7 H Eos # (Auto) 0.0 Baso # (Auto) 0.02 Differential Comment See pathology report PT INR APTT pO2 VBG pH VBG pCO2 VBG HCO3 VBG Total CO2 VBG O2 Sat (Calc) VBG Base Excess VBG Potassium Glucose Lactate FiO2 Sodium 133 Potassium 4.4 Chloride 101 Carbon Dioxide 24 Anion Gap 12 BUN 29 H Creatinine 1.4 Est GFR ( Amer) > 60 Est GFR (Non-Af Amer) 51 POC Glucose (mg/dL) Random Glucose 243 H Calcium 8.5 Phosphorus 3.8 Magnesium 1.9 Iron 12 L TIBC 198 L % Saturation 6 L Ferritin 140.0 Total Bilirubin 0.4 AST 46 ALT 44 Alkaline Phosphatase 986 H D Lactate Dehydrogenase Total Creatine Kinase Troponin I Total Protein 6.4 Albumin 2.8 L Globulin 3.5 Albumin/Globulin Ratio 0.8 L Lipase Carcinoembryonic Ag CA 19-9 Antigen CA 125 Antigen Vitamin B12 > 1000 H Folate 16.4 Venous Blood Potassium Urine Color Urine Appearance Urine pH Ur Specific [place] Urine Protein Urine Glucose (UA) Urine Ketones Urine Blood Urine Nitrate Urine Bilirubin Urine Urobilinogen Ur Leukocyte Esterase Urine RBC Urine WBC Ur Epithelial Cells Urine Bacteria Blood Type Blood Type Confirm Antibody Screen BBK History Checked 05/19/18 05/19/18 05/19/18 07:46 11:37 16:12 WBC RBC Hgb Hct MCV MCH MCHC RDW Plt Count MPV Gran % Lymph % (Auto) [place] % (Auto) Eos % (Auto) Baso % (Auto) Gran # Lymph # (Auto) [place] # (Auto) Eos # (Auto) Baso # (Auto) Differential Comment PT INR APTT pO2 VBG pH VBG pCO2 VBG HCO3 VBG Total CO2 VBG O2 Sat (Calc) VBG Base Excess VBG Potassium Glucose Lactate FiO2 Sodium Potassium Chloride Carbon Dioxide Anion Gap BUN Creatinine Est GFR ( Amer) Est GFR (Non-Af Amer) POC Glucose (mg/dL) 97 148 H 124 H Random Glucose Calcium Phosphorus Magnesium Iron TIBC % Saturation Ferritin Total Bilirubin AST ALT Alkaline Phosphatase Lactate Dehydrogenase Total Creatine Kinase Troponin I Total Protein Albumin Globulin Albumin/Globulin Ratio Lipase Carcinoembryonic Ag CA 19-9 Antigen CA 125 Antigen Vitamin B12 Folate Venous Blood Potassium Urine Color Urine Appearance Urine pH Ur Specific [place] Urine Protein Urine Glucose (UA) Urine Ketones Urine Blood Urine Nitrate Urine Bilirubin Urine Urobilinogen Ur Leukocyte Esterase Urine RBC Urine WBC Ur Epithelial Cells Urine Bacteria Blood Type Blood Type Confirm Antibody Screen BBK History Checked 05/19/18 05/20/18 05/20/18 21:01 06:00 06:00 WBC 14.1 H RBC 3.67 Hgb 9.3 L Hct 29.2 L MCV 79.6 L MCH 25.3 MCHC 31.8 RDW 14.0 Plt Count 535 H MPV 10.5 Gran % 82.7 H Lymph % (Auto) 6.3 L [place] % (Auto) 10.7 H Eos % (Auto) 0.2 L Baso % (Auto) 0.1 Gran # 11.64 H Lymph # (Auto) 0.9 L [place] # (Auto) 1.5 H Eos # (Auto) 0.0 Baso # (Auto) 0.01 Differential Comment PT INR APTT pO2 VBG pH VBG pCO2 VBG HCO3 VBG Total CO2 VBG O2 Sat (Calc) VBG Base Excess VBG Potassium Glucose Lactate FiO2 Sodium 135 Potassium 4.7 Chloride 105 Carbon Dioxide 24 Anion Gap 11 BUN 24 H Creatinine 1.4 Est GFR ( Amer) > 60 Est GFR (Non-Af Amer) 51 POC Glucose (mg/dL) 168 H Random Glucose 176 H Calcium 8.4 Phosphorus Magnesium Iron TIBC % Saturation Ferritin Total Bilirubin 0.4 AST 54 ALT 40 Alkaline Phosphatase 893 H Lactate Dehydrogenase Total Creatine Kinase Troponin I Total Protein 6.0 Albumin 2.6 L Globulin 3.4 Albumin/Globulin Ratio 0.8 L Lipase Carcinoembryonic Ag CA 19-9 Antigen CA 125 Antigen Vitamin B12 Folate Venous Blood Potassium Urine Color Urine Appearance Urine pH Ur Specific [place] Urine Protein Urine Glucose (UA) Urine Ketones Urine Blood Urine Nitrate Urine Bilirubin Urine Urobilinogen Ur Leukocyte Esterase Urine RBC Urine WBC Ur Epithelial Cells Urine Bacteria Blood Type Blood Type Confirm Antibody Screen BBK History Checked 05/20/18 05/20/18 07:21 11:24 WBC RBC Hgb Hct MCV MCH MCHC RDW Plt Count MPV Gran % Lymph % (Auto) [place] % (Auto) Eos % (Auto) Baso % (Auto) Gran # Lymph # (Auto) [place] # (Auto) Eos # (Auto) Baso # (Auto) Differential Comment PT INR APTT pO2 VBG pH VBG pCO2 VBG HCO3 VBG Total CO2 VBG O2 Sat (Calc) VBG Base Excess VBG Potassium Glucose Lactate FiO2 Sodium Potassium Chloride Carbon Dioxide Anion Gap BUN Creatinine Est GFR ( Amer) Est GFR (Non-Af Amer) POC Glucose (mg/dL) 187 H 198 H Random Glucose Calcium Phosphorus Magnesium Iron TIBC % Saturation Ferritin Total Bilirubin AST ALT Alkaline Phosphatase Lactate Dehydrogenase Total Creatine Kinase Troponin I Total Protein Albumin Globulin Albumin/Globulin Ratio Lipase Carcinoembryonic Ag CA 19-9 Antigen CA 125 Antigen Vitamin B12 Folate Venous Blood Potassium Urine Color Urine Appearance Urine pH Ur Specific [place] Urine Protein Urine Glucose (UA) Urine Ketones Urine Blood Urine Nitrate Urine Bilirubin Urine Urobilinogen Ur Leukocyte Esterase Urine RBC Urine WBC Ur Epithelial Cells Urine Bacteria Blood Type Blood Type Confirm Antibody Screen BBK History Checked Impressions Chest X-Ray 05/18/18 16:49 IMPRESSION: No active pulmonary disease. Stable asymmetric enlargement of the right hilum. Abdomen/Pelvis CT 05/18/18 17:29 IMPRESSION: 1. Partial reduction of intussusception likely. No bowel obstruction nevertheless oral contrast opacifying small and right-sided large-bowel segments. 2. Multifocal metastases identified in the lung bases and liver is well as retroperitoneum once again. Consider this is an etiology of the intussusception as well though no definitive small bowel masses clearly identifiable at this time. 3. Mild anasarca. Cachexia. 4. Other lesser findings as discussed above. Laboratory Results WBC 14.1 10^3/uL (4.5-11.0) H 05/20/18 06:00 RBC 3.67 10^6/uL (3.5-6.1) 05/20/18 06:00 Hgb 9.3 g/dL (14.0-18.0) L 05/20/18 06:00 Hct 29.2 % (42.0-52.0) L 05/20/18 06:00 MCV 79.6 fl (80.0-105.0) L 05/20/18 06:00 MCH 25.3 pg (25.0-35.0) 05/20/18 06:00 MCHC 31.8 g/dl (31.0-37.0) 05/20/18 06:00 RDW 14.0 % (11.5-14.5) 05/20/18 06:00 Plt Count 535 10^3/uL (120.0-450.0) H 05/20/18 06:00 MPV 10.5 fl (7.0-11.0) 05/20/18 06:00 Gran % 82.7 % (50.0-68.0) H 05/20/18 06:00 Lymph % (Auto) 6.3 % (22.0-35.0) L 05/20/18 06:00 [place] % (Auto) 10.7 % (1.0-6.0) H 05/20/18 06:00 Eos % (Auto) 0.2 % (1.5-5.0) L 05/20/18 06:00 Baso % (Auto) 0.1 % (0.0-3.0) 05/20/18 06:00 Gran # 11.64 (1.4-6.5) H 05/20/18 06:00 Lymph # (Auto) 0.9 (1.2-3.4) L 05/20/18 06:00 [place] # (Auto) 1.5 (0.1-0.6) H 05/20/18 06:00 Eos # (Auto) 0.0 (0.0-0.7) 05/20/18 06:00 Baso # (Auto) 0.01 K/mm3 (0.0-2.0) 05/20/18 06:00 Differential Comment See pathology report 05/19/18 04:25 PT 11.7 SECONDS (9.4-12.5) 05/18/18 17:58 INR 1.03 05/18/18 17:58 APTT 33.0 Seconds (25.1-36.5) 05/18/18 17:58 pO2 115 mm/Hg (30-55) H 05/18/18 22:13 VBG pH 7.38 (7.32-7.43) 05/18/18 22:13 VBG pCO2 39.0 (40-60) L 05/18/18 22:13 VBG HCO3 23.1 mmol/l (21-28) 05/18/18 22:13 VBG Total CO2 24.3 mmol.L (22-28) 05/18/18 22:13 VBG O2 Sat (Calc) 98.6 % (40-65) H 05/18/18 22:13 VBG Base Excess -1.8 mmol/L (0.0-2.0) L 05/18/18 22:13 VBG Potassium 4.0 mmol/L (3.6-5.2) 05/18/18 22:13 Sodium 131.0 mmol/L (132-148) L 05/18/18 22:13 Chloride 101.0 mmol/L (98-107) 05/18/18 22:13 Glucose 266 mg/dl (75-110) H 05/18/18 22:13 Lactate 1.1 mmol/L (0.7-2.1) 05/18/18 22:13 FiO2 21.0 % 05/18/18 22:13 Sodium 135 mmol/L (132-148) 05/20/18 06:00 Potassium 4.7 mmol/L (3.6-5.0) 05/20/18 06:00 Chloride 105 mmol/L (98-107) 05/20/18 06:00 Carbon Dioxide 24 mmol/L (21-33) 05/20/18 06:00 Anion Gap 11 (10-20) 05/20/18 06:00 BUN 24 mg/dL (7-21) H 05/20/18 06:00 Creatinine 1.4 mg/dl (0.8-1.5) 05/20/18 06:00 Est GFR ( Amer) > 60 05/20/18 06:00 Est GFR (Non-Af Amer) 51 05/20/18 06:00 POC Glucose (mg/dL) 198 mg/dL (65-110) H 05/20/18 11:24 Random Glucose 176 mg/dL (70-110) H 05/20/18 06:00 Calcium 8.4 mg/dL (8.4-10.5) 05/20/18 06:00 Phosphorus 3.8 mg/dL (2.5-4.5) 05/19/18 04:25 Magnesium 1.9 mg/dL (1.7-2.2) 05/19/18 04:25 Iron 12 ug/dL (45-180) L 05/19/18 04:25 TIBC 198 ug/dL (261-462) L 05/19/18 04:25 % Saturation 6 % (20-55) L 05/19/18 04:25 Ferritin 140.0 ng/mL 05/19/18 04:25 Total Bilirubin 0.4 mg/dL (0.2-1.3) 05/20/18 06:00 AST 54 U/L (17-59) 05/20/18 06:00 ALT 40 U/L (7-56) 05/20/18 06:00 Alkaline Phosphatase 893 U/L (38-126) H 05/20/18 06:00 Lactate Dehydrogenase 1657 U/L (333-699) H 05/18/18 17:58 Total Creatine Kinase 114 U/L (35-230) 05/18/18 17:58 Troponin I < 0.01 ng/mL 05/18/18 17:58 Total Protein 6.0 g/dL (5.8-8.3) 05/20/18 06:00 Albumin 2.6 g/dL (3.0-4.8) L 05/20/18 06:00 Globulin 3.4 gm/dL 05/20/18 06:00 Albumin/Globulin Ratio 0.8 (1.1-1.8) L 05/20/18 06:00 Lipase 73 U/L (23-300) 05/18/18 17:58 Carcinoembryonic Ag 14332.0 ng/mL (0.0-3.0) H 05/18/18 18:00 CA 19-9 Antigen 864 U/mL (0-37) H 05/18/18 18:00 CA 125 Antigen 1220 U/mL (0-35) H 05/18/18 18:00 Vitamin B12 > 1000 pg/mL (239-931) H 05/19/18 04:25 Folate 16.4 ng/mL 05/19/18 04:25 Venous Blood Potassium 4.0 mmol/L (3.6-5.2) 05/18/18 22:13 Urine Color Yellow (YELLOW) 05/18/18 19:00 Urine Appearance Clear (CLEAR) 05/18/18 19:00 Urine pH 6.0 (4.7-8.0) 05/18/18 19:00 Ur Specific [place] 1.025 (1.005-1.035) 05/18/18 19:00 Urine Protein >=300 mg/dL (<30 mg/dL) H 05/18/18 19:00 Urine Glucose (UA) 250 mg/dL (NEGATIVE) H 05/18/18 19:00 Urine Ketones Negative mg/dL (NEGATIVE) 05/18/18 19:00 Urine Blood Small (NEGATIVE) H 05/18/18 19:00 Urine Nitrate Negative (NEGATIVE) 05/18/18 19:00 Urine Bilirubin Negative (NEGATIVE) 05/18/18 19:00 Urine Urobilinogen 1.0 E.U./dL (<1 E.U./dL) H 05/18/18 19:00 Ur Leukocyte Esterase Negative Cedric/uL (NEGATIVE) 05/18/18 19:00 Urine RBC 5 - 10 /hpf (0-2) H 05/18/18 19:00 Urine WBC 2 - 5 /hpf (0-6) 05/18/18 19:00 Ur Epithelial Cells 0 - 2 /hpf (0-5) 05/18/18 19:00 Urine Bacteria Mod /hpf (NONE) 05/18/18 19:00 Blood Type O POSITIVE 05/18/18 17:45 Blood Type Confirm O POSITIVE 05/18/18 18:24 Antibody Screen Negative 05/18/18 17:45 BBK History Checked No verified bt 05/18/18 17:45 Assessment: 62 year old male with a PMx of DM, Tob Abuse, HLD, HTN, and anxiety sent in by his PCP for an abnormal CT abdomen/chest which showed multiple liver lesions consistent with metastatic disease in the liver and lung lesions (mets vs primary) and a small bowel intussusception in the RUQ. Patient reports 20 lb unintentional weight loss and solid-food dysphagia for about 1 month duration, currently undergoing workup. 1. Intussecption- likely secondary to metastatic disease. 2. Multiple liver and lung lesions for liver Biopsy today to r/u metastatic disease 3. Dysphagia with solid foods only, for EGD today Will flu results, monitor overnight post procedure. -Anticipate DC home tommorow as per admitting physician. Will continue to monitor clinical status and folllow closely.
[2018-05-20] MEDS ORDERED: Sodium Chloride 0.45% 1,000 ML IV SCH (16:30)
--- NOTE | 2018-05-20 16:55 | CP.PCM.PCO ---
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 Biopsied, Liq Diet
--- NOTE | 2018-05-20 18:24 | CT ---
PROCEDURE: CT guided liver biopsy. HISTORY: Multiple liver lesions. Unknown primary. Possible pancreatic primary. Needs liver biopsy. PHYSICIAN(S): Jaydon Cleaning MD. TECHNIQUE: The relative risks and indications of the procedure were explained to the patient and consent obtained. The patient was placed supine on the CT scanner and preliminary images through the liver obtained. Conscious sedation and monitoring were provided throughout the procedure by a nurse. There are numerous low-attenuation lesions in both lobes of the liver.. A subxyphoid approach was selected and the area prepped and draped in the usual sterile fashion. 1% Xylocaine was used to anesthetize the skin and soft tissues. A 17-gauge guiding needle was advanced into the confluent 5 cm mass in the lateral segment left lobe of the liver.. Its position was confirmed with CT. Using coaxial technique, multiple core biopsies were obtained. The postprocedure images show no evidence of significant hemorrhage. IMPRESSION: 1. CT-guided liver biopsy as described above.
--- NOTE | 2018-05-20 19:22 | PN ---
DATE: 05/20/2018 This is [facility] visit on the medical floor. For Dr. Watkins. SUBJECTIVE: The patient is a 62-year-old male sitting in a chair, at present preparing for testing as per Gastroenterology human resource consultant's recommendations with tissue diagnosis biopsy plan for his abnormal findings on CT testing. The patient did have significant elevated tumor markers for a gastrointestinal etiology of his suspicious findings including what appears to be metastatic changes to his liver and lung bases. He is, otherwise, in no acute distress. OBJECTIVE/PHYSICAL EXAMINATION VITAL SIGNS: Temperature 98, pulse 77, respirations 12, blood pressure 134/65, pulse ox 99%. HEENT: Unremarkable. Tongue is moist, midline. NECK: Supple. HEART: Regular rate. LUNGS: Clear. ABDOMEN: Soft and nontender. EXTREMITIES: No edema. SKIN: Warm and dry. NEUROLOGICAL: Awake, alert, and oriented x3. LABORATORY DATA: The patient's labs were done. White blood cell count 14.1, hemoglobin 9.3, hematocrit 29.2, and platelet count of 535,000 down from high of 716,000 yesterday with a metabolic panel today showing a non-fasting glucose of 198. BUN of 24 with a normal creatinine of 1.4. Alkaline phosphatase of 483 with normalization of his AST to 54 and ALT of 40. The patient did have an EGD with biopsy done earlier today with the preop diagnoses of intussusception, hyperkalemia, hyperglycemia with a postop diagnosis of esophageal mass after evaluation with Dr. Araujo, gastrointestinal human resource consultant with tissue diagnosis pending biopsy. ASSESSMENT: For this patient is that of unintentional weight loss, failure to thrive, diabetes mellitus, multiple liver/lung metastasis on CT scan, etiology to be determined, intussusception improved, tobacco abuse and ethanol abuse, history of constipation, dyspepsia, hyperlipidemia, hypertension, and thrombocythemia. PLAN: For this patient is to continue his present medical regimen as per his primary doctor with gastrointestinal human resource consultant's recommendation to be implemented. We will wait tissue pathology with further recommendations pending these results. At present, the patient appears to be in no acute distress. The patient is a complex patient with comprehensive medically necessary and appropriate visit carried out in excess of 20 minutes with the patient's questions answered to his satisfaction. Ezequiel MD Francisco
[2018-05-21 07:01] LABS: BASO # 0.01 K/mm3 (0.0-2.0); BASO % 0.1 % (0.0-3.0); EOS % 0.1 % (1.5-5.0); GRAN # 12.67 (1.4-6.5); GRAN % 83.2 % (50.0-68.0); HEMOGLOBIN 9.8 g/dL (14.0-18.0); LYMPH # 1.8 (1.2-3.4); LYMPH % 11.9 % (22.0-35.0); MEAN CELL VOLUME 80.5 fl (80.0-105.0); MEAN CORPUSCULAR HEMOGLOBIN 25.5 pg (25.0-35.0); MEAN CORPUSCULAR HGB CONC 31.7 g/dl (31.0-37.0); MEAN PLATELET VOLUME 10.7 fl (7.0-11.0); MONO # 0.7 (0.1-0.6); MONO % 4.7 % (1.0-6.0); RBC 3.84 10^6/uL (3.5-6.1); RED CELL DISTRIBUTION WIDTH 14.1 % (11.5-14.5); WHITE BLOOD COUNT 15.2 10^3/uL (4.5-11.0)
[2018-05-21 07:25] LABS: ALB/GLOB RATIO 0.8 (1.1-1.8); ALBUMIN 2.8 g/dL (3.0-4.8); CALCIUM 8.4 mg/dL (8.4-10.5)
[2018-05-21] MEDS: Insulin Reg-MEDIUM-Coverage SC SCH ×2 (07:55→13:02)
[2018-05-21 09:00] VITALS: BP 141/72; PULSE 86; RESP 20; TEMP 98.3; O2SAT 99
--- NOTE | 2018-05-21 10:35 | PN ---
DATE: 05/21/2018 This progress note is for Dr. Araujo, Dr. Oneill covering. SUBJECTIVE: The patient is lying in bed, comfortable. He has dysphagia to solid foods. He is tolerating clear liquids. PHYSICAL EXAMINATION: VITAL SIGNS: Reveal temperature of 98.3, blood pressure 141/72 and heart rate of 86. HEENT: Reveal sclerae to be white. Conjunctivae pink. NECK: Supple. CHEST: Lungs are clear. HEART: Reveals regular rate and rhythm. ABDOMEN: Soft and nontender. EXTREMITIES: Show no edema. LABORATORY DATA: Reveal, white blood cell count 15.2, hemoglobin 9.8 and platelet count 615,000. Chemistries reveal blood sugar 214, BUN 28, creatinine 1.5, alkaline phosphatase of 1002 and AST 101. 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 We are awaiting pathology from a liver biopsy and endoscopy with biopsy of the esophageal mass. His long-term prognosis is extremely poor. RECOMMENDATIONS: 1. We will continue clear liquids. 2. We will start the patient on Glucerna supplements. 3. Await biopsy results. Dom Oneill MD
--- NOTE | 2018-05-21 11:25 | CP.PCM.DIS ---
<Beata Solo - Last Filed: 05/21/18 14:47> Provider - Provider Date of Admission: 05/18/18 22:47 Attending physician: Karyn Burton MD Consults: 05/18/18 23:46 Physician Consult Stat Comment: Consulting Provider: Raz Araujo V Consulting Physician: Raz Araujo V Reason for Consult: esophageal mass/intussusception Physician Consult Stat Comment: Consulting Provider: Danny Salazar Consulting Physician: Danny Salazar Reason for Consult: Intussusception 05/19/18 00:38 Hematology Oncology Consult Routine Comment: Consulting Provider: Gerry Watkins Consulting Physician: Gerry Watkins Reason for Consult: Liver mets - unknown primary: lung vs esophagus 05/19/18 08:23 Physician Consult Routine Comment: Consulting Provider: Jaydon Cleaning Consulting Physician: Jaydon Cleaning Reason for Consult: liver Bx Time Spent in preparation of Discharge (in minutes): 35 Hospital Course - Lab Results Lab Results: Micro Results 05/18/18 19:15 Blood Blood Culture - Preliminary NO GROWTH AFTER 48 HOURS 05/18/18 18:45 Blood Blood Culture - Preliminary NO GROWTH AFTER 48 HOURS 05/19/18 09:41 Naris MRSA Culture (Admit) - Final MRSA NOT DETECTED 05/18/18 19:00 Urine Random Urine Culture - Final No Growth (<1,000 CFU/ML) Most Recent Lab Values WBC 15.2 10^3/uL (4.5-11.0) H 05/21/18 05:30 RBC 3.84 10^6/uL (3.5-6.1) 05/21/18 05:30 Hgb 9.8 g/dL (14.0-18.0) L 05/21/18 05:30 Hct 30.9 % (42.0-52.0) L 05/21/18 05:30 MCV 80.5 fl (80.0-105.0) 05/21/18 05:30 MCH 25.5 pg (25.0-35.0) 05/21/18 05:30 MCHC 31.7 g/dl (31.0-37.0) 05/21/18 05:30 RDW 14.1 % (11.5-14.5) 05/21/18 05:30 Plt Count 615 10^3/uL (120.0-450.0) H 05/21/18 05:30 MPV 10.7 fl (7.0-11.0) 05/21/18 05:30 Gran % 83.2 % (50.0-68.0) H 05/21/18 05:30 Lymph % (Auto) 11.9 % (22.0-35.0) L 05/21/18 05:30 Brooks % (Auto) 4.7 % (1.0-6.0) 05/21/18 05:30 Eos % (Auto) 0.1 % (1.5-5.0) L 05/21/18 05:30 Baso % (Auto) 0.1 % (0.0-3.0) 05/21/18 05:30 Gran # 12.67 (1.4-6.5) H 05/21/18 05:30 Lymph # (Auto) 1.8 (1.2-3.4) 05/21/18 05:30 Brooks # (Auto) 0.7 (0.1-0.6) H 05/21/18 05:30 Eos # (Auto) 0.0 (0.0-0.7) 05/21/18 05:30 Baso # (Auto) 0.01 K/mm3 (0.0-2.0) 05/21/18 05:30 Differential Comment See pathology report 05/19/18 04:25 PT 11.7 SECONDS (9.4-12.5) 05/18/18 17:58 INR 1.03 05/18/18 17:58 APTT 33.0 Seconds (25.1-36.5) 05/18/18 17:58 pO2 115 mm/Hg (30-55) H 05/18/18 22:13 VBG pH 7.38 (7.32-7.43) 05/18/18 22:13 VBG pCO2 39.0 (40-60) L 05/18/18 22:13 VBG HCO3 23.1 mmol/l (21-28) 05/18/18 22:13 VBG Total CO2 24.3 mmol.L (22-28) 05/18/18 22:13 VBG O2 Sat (Calc) 98.6 % (40-65) H 05/18/18 22:13 VBG Base Excess -1.8 mmol/L (0.0-2.0) L 05/18/18 22:13 VBG Potassium 4.0 mmol/L (3.6-5.2) 05/18/18 22:13 Sodium 131.0 mmol/L (132-148) L 05/18/18 22:13 Chloride 101.0 mmol/L (98-107) 05/18/18 22:13 Glucose 266 mg/dl (75-110) H 05/18/18 22:13 Lactate 1.1 mmol/L (0.7-2.1) 05/18/18 22:13 FiO2 21.0 % 05/18/18 22:13 Sodium 135 mmol/L (132-148) 05/21/18 05:30 Potassium 4.8 mmol/L (3.6-5.0) 05/21/18 05:30 Chloride 104 mmol/L (98-107) 05/21/18 05:30 Carbon Dioxide 24 mmol/L (21-33) 05/21/18 05:30 Anion Gap 12 (10-20) 05/21/18 05:30 BUN 28 mg/dL (7-21) H 05/21/18 05:30 Creatinine 1.5 mg/dl (0.8-1.5) 05/21/18 05:30 Est GFR ( Amer) 57 05/21/18 05:30 Est GFR (Non-Af Amer) 47 05/21/18 05:30 POC Glucose (mg/dL) 214 mg/dL (65-110) H 05/21/18 07:31 Random Glucose 208 mg/dL (70-110) H 05/21/18 05:30 Calcium 8.4 mg/dL (8.4-10.5) 05/21/18 05:30 Phosphorus 3.8 mg/dL (2.5-4.5) 05/19/18 04:25 Magnesium 1.9 mg/dL (1.7-2.2) 05/19/18 04:25 Iron 12 ug/dL (45-180) L 05/19/18 04:25 TIBC 198 ug/dL (261-462) L 05/19/18 04:25 % Saturation 6 % (20-55) L 05/19/18 04:25 Ferritin 140.0 ng/mL 05/19/18 04:25 Total Bilirubin 0.5 mg/dL (0.2-1.3) 05/21/18 05:30 AST 101 U/L (17-59) H D 05/21/18 05:30 ALT 39 U/L (7-56) 05/21/18 05:30 Alkaline Phosphatase 1002 U/L (38-126) H 05/21/18 05:30 Lactate Dehydrogenase 1657 U/L (333-699) H 05/18/18 17:58 Total Creatine Kinase 114 U/L (35-230) 05/18/18 17:58 Troponin I < 0.01 ng/mL 05/18/18 17:58 Total Protein 6.3 g/dL (5.8-8.3) 05/21/18 05:30 Albumin 2.8 g/dL (3.0-4.8) L 05/21/18 05:30 Globulin 3.6 gm/dL 05/21/18 05:30 Albumin/Globulin Ratio 0.8 (1.1-1.8) L 05/21/18 05:30 Lipase 73 U/L (23-300) 05/18/18 17:58 Carcinoembryonic Ag 27960.0 ng/mL (0.0-3.0) H 05/18/18 18:00 CA 19-9 Antigen 864 U/mL (0-37) H 05/18/18 18:00 CA 125 Antigen 1220 U/mL (0-35) H 05/18/18 18:00 Vitamin B12 > 1000 pg/mL (239-931) H 05/19/18 04:25 Folate 16.4 ng/mL 05/19/18 04:25 Venous Blood Potassium 4.0 mmol/L (3.6-5.2) 05/18/18 22:13 Urine Color Yellow (YELLOW) 05/18/18 19:00 Urine Appearance Clear (CLEAR) 05/18/18 19:00 Urine pH 6.0 (4.7-8.0) 05/18/18 19:00 Ur Specific [place] 1.025 (1.005-1.035) 05/18/18 19:00 Urine Protein >=300 mg/dL (<30 mg/dL) H 05/18/18 19:00 Urine Glucose (UA) 250 mg/dL (NEGATIVE) H 05/18/18 19:00 Urine Ketones Negative mg/dL (NEGATIVE) 05/18/18 19:00 Urine Blood Small (NEGATIVE) H 05/18/18 19:00 Urine Nitrate Negative (NEGATIVE) 05/18/18 19:00 Urine Bilirubin Negative (NEGATIVE) 05/18/18 19:00 Urine Urobilinogen 1.0 E.U./dL (<1 E.U./dL) H 05/18/18 19:00 Ur Leukocyte Esterase Negative Cedric/uL (NEGATIVE) 05/18/18 19:00 Urine RBC 5 - 10 /hpf (0-2) H 05/18/18 19:00 Urine WBC 2 - 5 /hpf (0-6) 05/18/18 19:00 Ur Epithelial Cells 0 - 2 /hpf (0-5) 05/18/18 19:00 Urine Bacteria Mod /hpf (NONE) 05/18/18 19:00 Blood Type O POSITIVE 05/18/18 17:45 Blood Type Confirm O POSITIVE 05/18/18 18:24 Antibody Screen Negative 05/18/18 17:45 BBK History Checked No verified bt 05/18/18 17:45 - Hospital Course Hospital Course: Upon admission, this is a 62M w/ a PMH of DM, HLD, GERD, HTN, Chronic Pancreatitis, who [place] [facility] after seeing his primary who urged him to have CTAP performed. Patient reported he has been having constipation and weightloss over the past month; which has now turned into diarrhea (non bloody). Patient reported that he has lost close to 20lb over the past month and has been having chills/ night sweats during this time as well. He reports new onset dysphagia over the past 2-3 weeks as well. Patient reports he has no issue initiating swallowing; however does report something stuck in his throat after he begins to swallow; patient reported symptoms initially started off as worsened w/ solids only however he now reports that he experiences some symptoms w/ liquids. During hospital course, CTAP showed liver is enlarged with innumerable masses seen scattered throughout the liver consistent with metastatic disease, chronic pancreatitis, enteroenteric intussusception in the right upper quadrant, perihepatic ascites, extensive retroperitoneal and mesenteric lymphadenopathy noted, diffuse nodular thickening noted at the distal esophagus and GE junction, numerous bilateral lung nodules measuring consistent with metastatic process. CE A and CA 19-9 elevated in patient. Alk phos and AST noted to be elevated. Patient had EGD done with revealed esophageal mass and biopsy was taken. Patient also had biopsy of liver mass. Patient advised to eat liquids and avoid solids and patient agreed. Patient agreed to followup with primary doctor and traffic rate computer doctor within 5-7 days of discharge and to follow up on biopsy results. Patient agreed with discharge today and all questions were answered. Discharge Exam - Additional Findings Additional findings: - Constitutional Appears: Well, Non-toxic, No Acute Distress, Chronically Ill - Head Exam Head Exam: ATRAUMATIC, NORMOCEPHALIC - Eye Exam Eye Exam: EOMI, Normal appearance, PERRL. absent: Scleral icterus - ENT Exam ENT Exam: Mucous Membranes Moist Additional comments: poor dentition - Respiratory Exam Respiratory Exam: Clear to Auscultation Bilateral, NORMAL BREATHING PATTERN. absent: Rales, Rhonchi, Wheezes - Cardiovascular Exam Cardiovascular Exam: regular rhythm, +S1, +S2. - GI/Abdominal Exam GI & Abdominal Exam: Soft. absent: Tenderness Additional comments: Mild hepatomegaly - Extremities Exam Extremities exam: pedal pulses present, no calf tenderness appreciated - Neurological Exam Neurological exam: Alert, CN II-XII Intact, Oriented x3 - Skin Skin Exam: Dry, Intact, Warm Discharge Plan - Follow Up Plan Condition: FAIR Disposition: HOME/ ROUTINE Instructions: Clear Liquid Diet, Hyperkalemia (DC), Hyperglycemia, Adult (DC), Intussusception (DC) Additional Instructions: Please do not eat solid food as per our discussion. You are at an increased risk for throat obstruction. Please follow up with your traffic rate computer, Dr. Araujo within 5-7 days of discharge to discuss the biopsy results of your endoscopy and your liver. Please follow up with your primary doctor, Dr. Jones within 5-7 days of discharge to discuss your biopsy results. Please resume your home medications, as per our discussion you do need refills at this time. Please return to the ED for any new or worsening symptoms. Referrals: Raz Araujo MD [Medical Doctor] - eSth Jones DO [Medical Doctor] - <Karyn Burton - Last Filed: 05/22/18 12:27> Provider - Provider Date of Admission: 05/18/18 22:47 Attending physician: Karyn Burton MD Consults: 05/18/18 23:46 Physician Consult Stat Comment: Consulting Provider: Raz Araujo V Consulting Physician: Raz Araujo V Reason for Consult: esophageal mass/intussusception Physician Consult Stat Comment: Consulting Provider: Danny Salazar Consulting Physician: Danny Salazar Reason for Consult: Intussusception 05/19/18 00:38 Hematology Oncology Consult Routine Comment: Consulting Provider: Gerry Watkins Consulting Physician: Gerry Watkins Reason for Consult: Liver mets - unknown primary: lung vs esophagus 05/19/18 08:23 Physician Consult Routine Comment: Consulting Provider: Jaydon Cleaning Consulting Physician: Jaydon Cleaning Reason for Consult: liver Bx Hospital Course - Lab Results Lab Results: Micro Results 05/18/18 19:15 Blood Blood Culture - Preliminary NO GROWTH AFTER 3 DAYS 05/18/18 18:45 Blood Blood Culture - Preliminary NO GROWTH AFTER 3 DAYS 05/19/18 09:41 Naris MRSA Culture (Admit) - Final MRSA NOT DETECTED 05/18/18 19:00 Urine Random Urine Culture - Final No Growth (<1,000 CFU/ML) Most Recent Lab Values WBC 15.2 10^3/uL (4.5-11.0) H 05/21/18 05:30 RBC 3.84 10^6/uL (3.5-6.1) 05/21/18 05:30 Hgb 9.8 g/dL (14.0-18.0) L 05/21/18 05:30 Hct 30.9 % (42.0-52.0) L 05/21/18 05:30 MCV 80.5 fl (80.0-105.0) 05/21/18 05:30 MCH 25.5 pg (25.0-35.0) 05/21/18 05:30 MCHC 31.7 g/dl (31.0-37.0) 05/21/18 05:30 RDW 14.1 % (11.5-14.5) 05/21/18 05:30 Plt Count 615 10^3/uL (120.0-450.0) H 05/21/18 05:30 MPV 10.7 fl (7.0-11.0) 05/21/18 05:30 Gran % 83.2 % (50.0-68.0) H 05/21/18 05:30 Lymph % (Auto) 11.9 % (22.0-35.0) L 05/21/18 05:30 Brooks % (Auto) 4.7 % (1.0-6.0) 05/21/18 05:30 Eos % (Auto) 0.1 % (1.5-5.0) L 05/21/18 05:30 Baso % (Auto) 0.1 % (0.0-3.0) 05/21/18 05:30 Gran # 12.67 (1.4-6.5) H 05/21/18 05:30 Lymph # (Auto) 1.8 (1.2-3.4) 05/21/18 05:30 Brooks # (Auto) 0.7 (0.1-0.6) H 05/21/18 05:30 Eos # (Auto) 0.0 (0.0-0.7) 05/21/18 05:30 Baso # (Auto) 0.01 K/mm3 (0.0-2.0) 05/21/18 05:30 Differential Comment See pathology report 05/19/18 04:25 PT 11.7 SECONDS (9.4-12.5) 05/18/18 17:58 INR 1.03 05/18/18 17:58 APTT 33.0 Seconds (25.1-36.5) 05/18/18 17:58 pO2 115 mm/Hg (30-55) H 05/18/18 22:13 VBG pH 7.38 (7.32-7.43) 05/18/18 22:13 VBG pCO2 39.0 (40-60) L 05/18/18 22:13 VBG HCO3 23.1 mmol/l (21-28) 05/18/18 22:13 VBG Total CO2 24.3 mmol.L (22-28) 05/18/18 22:13 VBG O2 Sat (Calc) 98.6 % (40-65) H 05/18/18 22:13 VBG Base Excess -1.8 mmol/L (0.0-2.0) L 05/18/18 22:13 VBG Potassium 4.0 mmol/L (3.6-5.2) 05/18/18 22:13 Sodium 131.0 mmol/L (132-148) L 05/18/18 22:13 Chloride 101.0 mmol/L (98-107) 05/18/18 22:13 Glucose 266 mg/dl (75-110) H 05/18/18 22:13 Lactate 1.1 mmol/L (0.7-2.1) 05/18/18 22:13 FiO2 21.0 % 05/18/18 22:13 Sodium 135 mmol/L (132-148) 05/21/18 05:30 Potassium 4.8 mmol/L (3.6-5.0) 05/21/18 05:30 Chloride 104 mmol/L (98-107) 05/21/18 05:30 Carbon Dioxide 24 mmol/L (21-33) 05/21/18 05:30 Anion Gap 12 (10-20) 05/21/18 05:30 BUN 28 mg/dL (7-21) H 05/21/18 05:30 Creatinine 1.5 mg/dl (0.8-1.5) 05/21/18 05:30 Est GFR ( Amer) 57 05/21/18 05:30 Est GFR (Non-Af Amer) 47 05/21/18 05:30 POC Glucose (mg/dL) 232 mg/dL (65-110) H 05/21/18 12:03 Random Glucose 208 mg/dL (70-110) H 05/21/18 05:30 Calcium 8.4 mg/dL (8.4-10.5) 05/21/18 05:30 Phosphorus 3.8 mg/dL (2.5-4.5) 05/19/18 04:25 Magnesium 1.9 mg/dL (1.7-2.2) 05/19/18 04:25 Iron 12 ug/dL (45-180) L 05/19/18 04:25 TIBC 198 ug/dL (261-462) L 05/19/18 04:25 % Saturation 6 % (20-55) L 05/19/18 04:25 Ferritin 140.0 ng/mL 05/19/18 04:25 Total Bilirubin 0.5 mg/dL (0.2-1.3) 05/21/18 05:30 AST 101 U/L (17-59) H D 05/21/18 05:30 ALT 39 U/L (7-56) 05/21/18 05:30 Alkaline Phosphatase 1002 U/L (38-126) H 05/21/18 05:30 Lactate Dehydrogenase 1657 U/L (333-699) H 05/18/18 17:58 Total Creatine Kinase 114 U/L (35-230) 05/18/18 17:58 Troponin I < 0.01 ng/mL 05/18/18 17:58 Total Protein 6.3 g/dL (5.8-8.3) 05/21/18 05:30 Albumin 2.8 g/dL (3.0-4.8) L 05/21/18 05:30 Globulin 3.6 gm/dL 05/21/18 05:30 Albumin/Globulin Ratio 0.8 (1.1-1.8) L 05/21/18 05:30 Lipase 73 U/L (23-300) 05/18/18 17:58 Carcinoembryonic Ag 98932.0 ng/mL (0.0-3.0) H 05/18/18 18:00 CA 19-9 Antigen 864 U/mL (0-37) H 05/18/18 18:00 CA 125 Antigen 1220 U/mL (0-35) H 05/18/18 18:00 Vitamin B12 > 1000 pg/mL (239-931) H 05/19/18 04:25 Folate 16.4 ng/mL 05/19/18 04:25 Venous Blood Potassium 4.0 mmol/L (3.6-5.2) 05/18/18 22:13 Urine Color Yellow (YELLOW) 05/18/18 19:00 Urine Appearance Clear (CLEAR) 05/18/18 19:00 Urine pH 6.0 (4.7-8.0) 05/18/18 19:00 Ur Specific [place] 1.025 (1.005-1.035) 05/18/18 19:00 Urine Protein >=300 mg/dL (<30 mg/dL) H 05/18/18 19:00 Urine Glucose (UA) 250 mg/dL (NEGATIVE) H 05/18/18 19:00 Urine Ketones Negative mg/dL (NEGATIVE) 05/18/18 19:00 Urine Blood Small (NEGATIVE) H 05/18/18 19:00 Urine Nitrate Negative (NEGATIVE) 05/18/18 19:00 Urine Bilirubin Negative (NEGATIVE) 05/18/18 19:00 Urine Urobilinogen 1.0 E.U./dL (<1 E.U./dL) H 05/18/18 19:00 Ur Leukocyte Esterase Negative Cedric/uL (NEGATIVE) 05/18/18 19:00 Urine RBC 5 - 10 /hpf (0-2) H 05/18/18 19:00 Urine WBC 2 - 5 /hpf (0-6) 05/18/18 19:00 Ur Epithelial Cells 0 - 2 /hpf (0-5) 05/18/18 19:00 Urine Bacteria Mod /hpf (NONE) 05/18/18 19:00 Blood Type O POSITIVE 05/18/18 17:45 Blood Type Confirm O POSITIVE 05/18/18 18:24 Antibody Screen Negative 05/18/18 17:45 BBK History Checked No verified bt 05/18/18 17:45 Attending/Attestation - Attestation I have personally seen and examined this patient.: Yes I have fully participated in the care of the patient.: Yes I have reviewed all pertinent clinical information, including history, physical exam and plan: Yes Notes (Text): 05/22/18 12:22 Medical record note made by the resident after discussion with my direction and input after the patient was personally seen and examined by me. I have reviewed the chart and agree that the record accurately reflects by personal performance of the history, physical exam, data review, and medical decision-making, in the course for the patient. I have also personally directed the plan of care. 62 yrs old male with PMH of DM, HLD, GERD, HTN, Chronic Pancreatitis, who [place] [facility] [place] after seeing his primary for progreesive dysphagia and weight lose who urged him to have CTAbdomen and Pelvis performed. Patient reported he has been having constipation and weightloss over the past month; Patient reported that he has lost close to 20lb over the past month and has been having chills/ night sweats during this time as well. He reports new onset dysphagia over the past 2-[address] Abdomen and Pelvis showed liver is enlarged with innumerable masses seen scattered throughout the liver consistent with metastatic disease, chronic pancreatitis, enteroenteric intussusception in the right upper quadrant, perihepatic ascites, extensive retroperitoneal and mesenteric lymphadenopathy noted, diffuse nodular thickening noted at the distal esophagus and GE junction, numerous bilateral lung nodules measuring consistent with metastatic process. Patient was seen in consultation with GI and Surgery. CEA and CA 19-9 elevated in patient. Alk phos and AST noted to be elevated. Patient had EGD done on 05/20/18 with revealed esophageal mass and biopsy was taken. Patient also had biopsy of liver mass on 05/20/18 Biopsies results are pending at the time of discharge. Patient advised to eat liquids and avoid solids and patient agreed. Patient will follow up biopsies result with primary doctor and traffic rate computer doctor within 5 days of discharge. Management plan was discussed in detail with patient. Education was provided.
== END 2018-05-21 17:09 | disposition home or self-care (01) | DRG 389 ==
LOC: ED 16:25 → ERH 22:47 → 3RNO 05-19 01:41
PROVIDERS: ADMIT Internal Medicine; ATTEND Internal Medicine
PROC: 0DB58ZX Excision of Esophagus, Via Natural or Artificial Opening Endoscopic, Diagnostic (ICD-10-PCS; 2018-05-20)
PROC: BF251ZZ Computerized Tomography (CT Scan) of Liver using Low Osmolar Contrast (ICD-10-PCS; 2018-05-20)
PROC: 0FB23ZX Excision of Left Lobe Liver, Percutaneous Approach, Diagnostic (ICD-10-PCS; principal; 2018-05-20 13:15)
DX: K56.1 Intussusception (principal); C78.00 Secondary malignant neoplasm of unspecified lung; C78.7 Secondary malignant neoplasm of liver and intrahepatic bile duct; K86.1 Other chronic pancreatitis; R18.8 Other ascites; C15.4 Malignant neoplasm of middle third of esophagus; C15.5 Malignant neoplasm of lower third of esophagus; C80.1 Malignant (primary) neoplasm, unspecified; D72.829 Elevated white blood cell count, unspecified; E11.40 Type 2 diabetes mellitus with diabetic neuropathy, unspecified; E11.65 Type 2 diabetes mellitus with hyperglycemia; E78.5 Hyperlipidemia, unspecified; E87.5 Hyperkalemia; F10.10 Alcohol abuse, uncomplicated; F17.210 Nicotine dependence, cigarettes, uncomplicated; F41.9 Anxiety disorder, unspecified; I10 Essential (primary) hypertension; J44.9 Chronic obstructive pulmonary disease, unspecified; K21.9 Gastro-esophageal reflux disease without esophagitis; K22.9 Disease of esophagus, unspecified; K44.9 Diaphragmatic hernia without obstruction or gangrene; R13.10 Dysphagia, unspecified; R62.7 Adult failure to thrive; Z80.1 Family history of malignant neoplasm of trachea, bronchus and lung; Z80.3 Family history of malignant neoplasm of breast; Z82.49 Family history of ischemic heart disease and other diseases of the circulatory system